=== PATIENT | male | born 1935 | race Caucasian/White ===

== ENCOUNTER → 2016-05-13 | Outpatient (CLI) | payer OTHER ==
[~2016-05-13] MED LIST: ASPI81TA28 PO; DONE10TA12 PO; GLC/500 PO; LISI-789 PO
[2016-05-13 12:58] LABS: BASO % 0.5 %; BASO ABS # 0.04 K/uL (0-0.2); COMPLETE YES; EOS % 2.3 %; HEMATOCRIT 43.6 % (42-52); IG% 0.6 %; LYMPH % 23.3 %; LYMPH ABS # 1.83 K/uL (1.2-3.4); MEAN CELL VOLUME 84.8 fL (80-100); MEAN CORPUSCULAR HEMOGLOBIN 29.4 pg (25-34); MEAN CORPUSCULAR HGB CONC 34.6 g/dl (32-36); MEAN PLATELET VOLUME 11.3 fL (7.4-10.4); MONO % 8.7 %; NEUT % 64.6 %; PLATELET COUNT 192 K/uL (130-400); RED BLOOD COUNT 5.14 M/uL (4.7-6.1); WHITE BLOOD COUNT 7.85 K/uL (4.8-10.8)
[2016-05-13 13:29] LABS: ESTIMATED AVERAGE GLUCOSE 146 mg/dl; HA1C FLAG Normal (Normal)
[2016-05-13 13:32] LABS: ALT/SGPT 28 U/L (12-78); BLOOD UREA NITROGEN 18 mg/dl (7-18); BUN/CREATININE RATIO 12.6 (10-20); CALCIUM 9.4 mg/dl (8.5-10.1); CARBON DIOXIDE 24 mmol/L (21-32); CHLORIDE 103 mmol/L (98-107); GLUCOSE 156 mg/dl (70-99); POTASSIUM 4.3 mmol/L (3.5-5.1); SODIUM 137 mmol/L (136-145)
[2016-05-13 13:35] LABS: ALB/GLOB RATIO 1.4 (0.9-2); ALKALINE PHOSPHATASE 78 U/L (45-117); AST/SGOT 15 U/L (15-37)
== END | disposition home or self-care (01) ==
LOC: C.LABSPEC 12:22
PROVIDERS: ATTEND Internal Medicine
DX: E11.9 Type 2 diabetes mellitus without complications (principal); I10 Essential (primary) hypertension

== ENCOUNTER → 2016-09-14 | Outpatient (CLI) | payer OTHER ==
[2016-09-14 13:18] LABS: ESTIMATED AVERAGE GLUCOSE 148 mg/dl; HA1C FLAG Normal (Normal)
[2016-09-14 13:37] LABS: BLOOD UREA NITROGEN 18 mg/dl (7-18); BUN/CREATININE RATIO 13.8 (10-20); CALCIUM 8.7 mg/dl (8.5-10.1); CARBON DIOXIDE 31 mmol/L (21-32); CHLORIDE 105 mmol/L (98-107); GLUCOSE 205 mg/dl (70-99); POTASSIUM 4.1 mmol/L (3.5-5.1); SODIUM 142 mmol/L (136-145)
== END | disposition home or self-care (01) ==
LOC: C.LABSPEC 12:28
PROVIDERS: ATTEND Internal Medicine
DX: E11.9 Type 2 diabetes mellitus without complications (principal); I10 Essential (primary) hypertension

== ENCOUNTER 2018-08-30 17:36 | Inpatient (IN) ==
[2018-08-30] MEDS ORDERED: SODIUM CHLORIDE 0.9% 1000ML 1,000 ML IV ONE (17:46)
[2018-08-30] MEDS ORDERED: ACETAMINOPHEN 1,000 MG/100 ML VIAL IV STA (17:47)
[2018-08-30 18:00] LABS: Hematocrit (blood only) 40.6 % (42-52); Hemoglobin 14.2 g/dL (14.0-18.0); Mean Corpuscular Volume 82.5 fL (80-100); RDW Coefficient of Variation 13.4 % (11.5-14.5); RDW Standard Deviation 40.7 fL (36.4-46.3); Red Blood Count 4.92 M/uL (4.7-6.1); White Blood Count 4.08 K/uL (4.8-10.8)
[2018-08-30 18:12] LABS: INR 1.1 (0.9-1.1); Partial Thromboplastin Ratio 1.1; Partial Thromboplastin Time 29.1 Seconds (21.0-31.0); Prothrombin Time 11.4 Seconds (9.0-12.0)
--- NOTE | 2018-08-30 18:16 | XRay Report ---
XR chest 1V portable CLINICAL HISTORY: Altered mental status. Fever. COMPARISON STUDY: Chest radiograph August 29, 2018. FINDINGS: Suspected calcified left hilar lymph nodes are noted. There may be a calcified left lower l vincent granuloma. There is no consolidation or evidence for pulmonary edema. Cardiac size is normal. Med iastinal contours are normal. Appearance of the chest is unchanged. IMPRESSION: No acute cardiopulmonary findings. Electronically signed by: Ren Smith M.D. 08/30/2018 6:14 PM
[2018-08-30 18:18] LABS: Alanine Aminotransferase 17 U/L (12-78); Albumin Level 3.6 gm/dl (3.4-5.0); Aspartate Aminotransferase 13 U/L (15-37); BUN Creatinine Ratio 13.7 (10-20); Blood Urea Nitrogen 18 mg/dl (7-18); Calcium 8.6 mg/dl (8.5-10.1); Carbon Dioxide 26 mmol/L (21-32); Chloride 100 mmol/L (98-107); Est GFR (African American) 56.4; Est GFR (Non-African American) 48.6; Glucose 138 mg/dl (70-99); Magnesium 2.1 mg/dl (1.8-2.4); Potassium 4.2 mmol/L (3.5-5.1); Sodium 131 mmol/L (136-145)
[2018-08-30 18:20] LABS: Appearance Urine Clear (Clear); Bacteria Urine Automated Negative (Negative); Bilirubin Urine Negative (Negative); Blood Urine 3+ (Negative); Color Urine Yellow; Epithelial Cell Urine Auto >30 /lpf (0-5); Glucose Urine UA Negative (Negative); Ketones Urine Negative (Negative); Leukocyte Esterase Urine Negative (Negative); Nitrite Urine Negative (Negative); Protein Urine Negative (Negative); RBC Urine Automated >30 /hpf (0-4); Specific Gravity Urine 1.022 (1.000-1.030); Urobilinogen Urine Negative (Negative)
[2018-08-30 18:24] LABS: Alkaline Phosphatase 71 U/L (45-117); Bilirubin Direct 0.2 mg/dl (0-0.2); Bilirubin,Total 0.7 mg/dl (0.2-1); Creatine Kinase 160 U/L (39-308); Total Protein 6.9 gm/dl (6.4-8.2)
[2018-08-30 18:37] LABS: Troponin I < 0.015 ng/ml (0-0.045)
[2018-08-30 18:43] LABS: Mean Platelet Volume 10.1 fL (7.4-10.4); Platelet Count 91 K/uL (130-400)
[2018-08-30 18:44] LABS: Basophils # (auto) 0.01 K/uL (0-0.2); Basophils % (auto) 0.2 %; Immature Granulocytes # (auto) 0.01 K/uL (0.00-0.02); Immature Granulocytes % (auto) 0.2 %; Lymphocytes # (auto) 0.84 K/uL (1.2-3.4); Lymphocytes % (auto) 20.6 %; Monocytes # (auto) 0.52 K/uL (0.11-0.59); Monocytes % (auto) 12.7 %; Neutrophils % (auto) 66.3 %; Platelet Estimate Decreased (Normal)
[2018-08-30 18:51] LABS: Renal Epithelial Cells Urine 0-5 /lpf (0-5)
[2018-08-30] MEDS ORDERED: IOVERSOL 100ml IV PRN (18:52)
--- NOTE | 2018-08-30 19:01 | CT Scan Report ---
CT SCAN OF THE BRAIN WITHOUT IV CONTRAST CLINICAL HISTORY: Change in mental status. Fever. COMPARISON STUDY: CT of the brain dated 08/29/2018. TECHNIQUE: Unenhanced axial CT scan of the brain is performed from the vertex to the skull base. A do se lowering technique was utilized adhering to the principles of ALARA. The Examination is modestly d egraded by motion artifact. FINDINGS: Brain parenchyma: There are age-related involutional changes noting moderate subcortical and periven tricular microangiopathic change. There is no hemorrhage, mass effect, or evidence of acute territori al ischemia by CT criteria. Davis-white matter differentiation is preserved. No extra-axial fluid allen ection is seen. Ventricles, sulci, cisterns: Prominent secondary to involutional change. Intracranial vasculature: There is atherosclerotic calcification of the cavernous carotid arteries. Calvarium: Unremarkable. Sinuses and mastoids: There is subtotal opacification of the right maxillary antrum. The remaining Pa ranasal sinuses are clear. The mastoid air cells are well pneumatized. Orbits: The bony orbits are grossly intact. IMPRESSION: 1. Senescent change as above with no hemorrhage, mass effect, or evidence of acute territorial ischem ia by CT criteria. 2. Right maxillary sinus disease as above. Electronically signed by: Edwin Danielson M.D. 08/30/2018 6:59 PM
[2018-08-30 19:08] LABS: Lyme Ab IgG w/WB Rflx Negative (Negative); Lyme Ab IgM w/WB Rflx Negative (Negative)
--- NOTE | 2018-08-30 19:14 | CT Scan Report ---
CT SCAN OF THE ABDOMEN AND PELVIS WITH IV CONTRAST CLINICAL HISTORY: Fever. Change in mental status. COMPARISON STUDY: No priors. TECHNIQUE: Following the IV administration of 95 cc of Optiray 320, CT scan of the abdomen and pelvi s is performed from the lung bases to the proximal femora. Images are reviewed in the axial, sagittal , and coronal planes. IV contrast was administered without complication. A dose lowering technique wa s utilized adhering to the principles of ALARA. The examination is degraded by streak artifact from t he left arm which could not be elevated above the abdomen, as well as by mild motion artifact. CT DOSE: 2278.98 mGy.cm FINDINGS: Lung bases: The heart is normal in size and without pericardial effusion. There are coronary artery c alcifications. The lung bases are clear. Liver: The contrast-enhanced liver is normal in size, contour, and attenuation. There is no intrahepa tic biliary ductal dilatation. The hepatic veins and portal veins are patent. Gallbladder: Unremarkable. Spleen: The spleen is enlarged, measuring 15.7 cm in length. There are numerous calcified splenic gra nulomas. Pancreas: Moderately atrophic and grossly unremarkable. Adrenal glands: Unremarkable. Kidneys: The contrast enhanced kidneys are normal in size and without hydronephrosis. The kidneys enh ance adnexa symmetrically. Excreted IV contrast is present within the renal collecting system and ure ters. Scattered subcentimeter cortical hypodensities likely represent cysts but are too small for def initive characterization. Abdominal vasculature: There is moderate to advanced atherosclerotic calcification and mild ectasia o f the abdominal aorta. Bowel: There is moderate diverticulosis of the left colon without CT evidence of acute diverticulitis . No bowel obstruction is seen. The appendix is well-visualized and normal. Peritoneum: There is no intraperitoneal free air or abdominal ascites. Lymphadenopathy: None. Pelvic viscera: The prostate gland is enlarged and heterogeneous, measuring 5.2 cm in transverse diam eter. The bladder is decompressed around a Dougherty catheter. Mild pericystic inflammation is identified . There is a small fat-containing right inguinal hernia. Skeletal structures: The skeletal structures are osteopenic. Mild lumbosacral spondylosis is observed . No lytic or blastic lesions are seen. IMPRESSION: 1. The bladder is decompressed around a Dougherty catheter and there is mild pericystic stranding. Correl ate clinically and with urinalysis for evidence of cystitis. 2. There is moderate diverticulosis of the left colon without CT evidence of acute diverticulitis. 3. Splenomegaly. 4. Additional findings as above. Electronically signed by: Edwin Danielson M.D. 08/30/2018 7:13 PM
[2018-08-30 19:20] LABS: Base Excess VBG -2.3 mEq/L; Oxygen Saturation VBG 90.5 %; pH VBG 7.39 (7.36-7.41)
[2018-08-30] MEDS ORDERED: DOXYCYCLINE HYCLATE 100 MG in DEXTROSE 5% 100 ML IV STA (19:58)
[2018-08-30] MEDS ORDERED: DOCUSATE SODIUM 100 MG CAP PO PRN (23:04)
[2018-08-30] MEDS ORDERED: GLUCOSE 10 TABS/TUBE PO PRN (23:04)
[2018-08-30] MEDS ORDERED: DEXTROSE 50% 50 ML SYRINGE IV PRN (23:04)
[2018-08-30] MEDS ORDERED: GLUCAGON FOR INJ 1 MG VIAL SQ PRN (23:04)
[2018-08-30] MEDS ORDERED: SODIUM CHLORIDE 0.9% 1000ML 1,000 ML IV SCH (23:04)
[2018-08-30] MEDS ORDERED: GLUCOSE 40% GEL 15 GM TUBE PO PRN (23:04)
[2018-08-30] MEDS ORDERED: CARBOHYDRATES FOR HYPOGLYCEMIA PO PRN (23:04)
[2018-08-30] MEDS ORDERED: ACETAMINOPHEN 325 MG TAB PO PRN (23:04)
--- NOTE | 2018-08-30 23:12 | Emergency Department Note ---
Entered by Kelly Carrera acting as a scribe for Steve Avery History of Present Illness General Chief complaint: Fever Stated complaint: poss. sepsis Time Seen by Provider: 08/30/18 17:43 Source: other (Nurse) Limitations: altered mental status History of Present Illness Onset (ago): day(s) 1 Location: head (Fever) Severity: similar to prior episodes Pain Consistency: + other (Persistent) Quality: + other (Fever) Associated symptoms: + fever/chills The patient is an 83 year old male presenting to the Emergency Department with an persistent fever starting 1 day ago. The nurse reports that the patient�s temperature is 40.1C. She states that the patient is weak, reporting chills, and has increased confusion since being discharged from the hospital yesterday. The HPI and ROS are limited due to AMS. Home Medications Home Medications Medication Instructions Recorded Confirmed Type aspirin [Aspir-81] 81 mg PO DAILY 08/29/18 08/30/18 History donepezil 10 mg PO DAILY 08/29/18 08/30/18 History escitalopram oxalate 10 mg PO DAILY 08/29/18 08/30/18 History lisinopril 2.5 mg PO DAILY 08/29/18 08/30/18 History memantine 5 mg PO BID 08/29/18 08/30/18 History metformin 500 mg PO QAM 08/29/18 08/30/18 History tamsulosin 0.4 mg PO DAILY 08/29/18 08/30/18 History Allergies Allergy/AdvReac Type Severity Reaction Status Date / Time No Known Allergies Allergy Verified 08/30/18 22:11 Past Med/Surg History Medical History HTN (hypertension) (Chronic) Diabetes (Chronic) Hyperlipidemia (Chronic) UTI (urinary tract infection) (Acute) Family History Other Family history non-contributory Social History Feels Safe at Home: Yes Smoking Status: Former smoker Review of Systems The HPI and ROS are limited due to AMS. Physical Exam Vital Signs Vital Signs - 24 hr 08/30/18 17:40 08/30/18 18:00 08/30/18 18:20 Temperature 40.1 C H Temperature Source Rectal Sepsis Recent Fever Within 48 Hours Yes Sepsis New/Unexplained Change in Mental Status Yes Sepsis Action Taken by Nursing Physician Notified Pulse Rate 84 77 74 Pulse Rate [Finger] Pulse Rate from SpO2 Sensor 76 Respiratory Rate 24 24 19 Respiratory Effort / Characteristics Respiratory Depth Blood Pressure 135/95 145/84 H Blood Pressure [Right Arm] Blood Pressure Mean 108 104 Blood Pressure Mean [Right Arm] Pulse Oximetry 94 93 Oxygen Delivery Method Room Air 08/30/18 19:26 08/30/18 19:27 08/30/18 20:23 Temperature 37.7 C H Temperature Source Rectal Sepsis Recent Fever Within 48 Hours Sepsis New/Unexplained Change in Mental Status Sepsis Action Taken by Nursing Pulse Rate Pulse Rate [Finger] 65 62 Pulse Rate from SpO2 Sensor Respiratory Rate 20 20 Respiratory Effort / Characteristics Non-Labored Spontaneous Non-Labored Spontaneous Respiratory Depth Normal Normal Blood Pressure Blood Pressure [Right Arm] 139/72 130/67 Blood Pressure Mean Blood Pressure Mean [Right Arm] 94 88 Pulse Oximetry 94 94 94 Oxygen Delivery Method Room Air Room Air Room Air 08/30/18 21:42 Temperature Temperature Source Sepsis Recent Fever Within 48 Hours Sepsis New/Unexplained Change in Mental Status Sepsis Action Taken by Nursing Pulse Rate Pulse Rate [Finger] 60 Pulse Rate from SpO2 Sensor Respiratory Rate 20 Respiratory Effort / Characteristics Respiratory Depth Blood Pressure Blood Pressure [Right Arm] 130/71 Blood Pressure Mean Blood Pressure Mean [Right Arm] 90 Pulse Oximetry 95 Oxygen Delivery Method Room Air HENT: Exam performed. - Head: Normocephalic and atraumatic. - Right Ear: External ear normal. No mastoid tenderness. - Left Ear: External ear normal. No mastoid tenderness. - Mouth/Throat: The oropharynx is clear and moist. No trismus in the jaw. No dental abscesses or uvula swelling. No oropharyngeal exudate or tonsillar abscesses. EYES: Conjunctivae and EOM are normal. Pupils are equal, round, and reactive to light. Right eye exhibits no discharge. Left eye exhibits no discharge. No scleral icterus. NECK: Normal range of motion. Neck supple. No JVD present. No spinous process tenderness present. CV: Normal rate, regular rhythm, normal heart sounds and intact distal pulses. There is no peripheral edema. Palpable radial pulses bue. PULM/CHEST: Effort normal and breath sounds normal. No respiratory distress. No stridor. He has no wheezes. He has no rales. - Chest Wall: He exhibits no tenderness. ABD: The abdomen is distended. : Uncircumcised. MUSC/SKEL: Normal range of motion. There is no peripheral edema, tenderness or deformity. NEURO: Motor and sensation grossly intact. SKIN: Skin is warm and dry. He is not diaphoretic. Course 1741: The patient was evaluated in room B1, and a complete history and physical examination were performed. The patient was seen by me yesterday for increased confusion and weakness. At that time the patient�s workup was negative, negative lactic acid, no leukocytosis, negative urine analysis, negative influenza. 2000: Vital signs stable. Labs and imaging within normal limits. Family reports that they found multiple ticks on their dog within the last few days. Patient�s Lyme screen was negative. It is noted that the patient�s platelet count has dropped from 116 to 91 in 24 hours. There is possibility that the patient could be suffering from anaplasmosis. No ticks were found on the patient�s body. Testing for anaplasmosis will be sent off. Patient will be treated with Doxycycline. Dr. Baez � [facility] [place] and is accepting the patient for anaplasmosis treatment and observation. Administered Medications Discontinued Medications Sodium Chloride (Nss 1000ml) 1,000 mls @ 999 mls/hr IV .Q1H1M ONE Stop: 08/30/18 18:46 Last Infusion: 08/30/18 18:33 Dose: 0 mls/hr Documented by: [id number] Admin: 08/30/18 17:46 Dose: 999 mls/hr Documented by: [id number] Acetaminophen (Ofirmev) 1,000 mg in 100 mls @ 400 mls/hr IV NOW STA Stop: 08/30/18 18:01 Last Infusion: 08/30/18 18:09 Dose: 0 mls/hr Documented by: [id number] Admin: 08/30/18 17:55 Dose: 400 mls/hr Documented by: [id number] Doxycycline Hyclate 100 mg/ (Dextrose) 110 mls @ 50 mls/hr IV NOW STA Stop: 08/30/18 22:09 Last Infusion: 08/30/18 22:55 Dose: 0 mls/hr Documented by: [id number] Admin: 08/30/18 20:22 Dose: 50 mls/hr Documented by: [id number] Ioversol (Optiray 320 100ml) 95 ml IV ONCE PRN PRN Reason: Interaction Checking Stop: 09/03/18 18:51 Last Admin: 08/30/18 18:53 Dose: 95 ml Documented by: [id number] Medical Decision Making Medical Records Attestation: I reviewed the patient's medical records. Home Medications Current Medication List: was personally reviewed by me Laboratory Data Attestation: I reviewed the patient's lab results. Result diagrams: 08/30/18 17:30 08/30/18 17:30 Lab Results 08/30/18 08/30/18 08/30/18 Range/Units 17:30 17:30 17:30 WBC 4.08 L (4.8-10.8) K/uL RBC 4.92 (4.7-6.1) M/uL Hgb 14.2 (14.0-18.0) g/dL Hct 40.6 L (42-52) % MCV 82.5 (80-100) fL MCH 28.9 (25-34) pg MCHC 35.0 (32-36) g/dL RDW Std Deviation 40.7 (36.4-46.3) fL RDW Coeff of Daniella 13.4 (11.5-14.5) % Plt Count 91 L (130-400) K/uL MPV 10.1 (7.4-10.4) fL Immature Gran % (Auto) 0.2 % Neut % (Auto) 66.3 % Lymph % (Auto) 20.6 % Long % (Auto) 12.7 % Eos % (Auto) 0.0 % Baso % (Auto) 0.2 % Immature Gran # (Auto) 0.01 (0.00-0.02) K/uL Neut # (Auto) 2.70 (1.4-6.5) K/uL Lymph # (Auto) 0.84 L (1.2-3.4) K/uL Long # (Auto) 0.52 (0.11-0.59) K/uL Eos # (Auto) 0.00 (0-0.5) K/uL Baso # (Auto) 0.01 (0-0.2) K/uL Platelet Estimate Decreased L (Normal) PT 11.4 (9.0-12.0) Seconds INR 1.1 (0.9-1.1) APTT 29.1 (21.0-31.0) Seconds PTT Ratio 1.1 VBG pH (7.36-7.41) VBG pCO2 (38-50) mmHg VBG pO2 mmHg VBG HCO3 mmol/L VBG O2 Saturation % VBG Base Excess mEq/L Barometric Pressure mm/Hg Sodium 131 L (136-145) mmol/L Potassium 4.2 (3.5-5.1) mmol/L Chloride 100 (98-107) mmol/L Carbon Dioxide 26 (21-32) mmol/L Anion Gap 5.0 (3-11) BUN 18 (7-18) mg/dl Creatinine 1.34 (0.6-1.4) mg/dl Est Cr Clr Drug Dosing Not Reportable Est GFR ( Amer) 56.4 Est GFR (Non-Af Amer) 48.6 BUN/Creatinine Ratio 13.7 (10-20) Glucose 138 H (70-99) mg/dl Lactate (0.4-2.0) mmol/L Calcium 8.6 (8.5-10.1) mg/dl Magnesium 2.1 (1.8-2.4) mg/dl Total Bilirubin 0.7 (0.2-1) mg/dl Direct Bilirubin 0.2 D (0-0.2) mg/dl AST 13 L (15-37) U/L ALT 17 (12-78) U/L Alkaline Phosphatase 71 (45-117) U/L Total Creatine Kinase 160 (39-308) U/L Troponin I < 0.015 (0-0.045) ng/ml Total Protein 6.9 (6.4-8.2) gm/dl Albumin 3.6 (3.4-5.0) gm/dl Lipase 141 (73-393) U/L Urine Color Urine Appearance (Clear) Urine pH (4.5-7.5) Ur Specific [place] (1.000-1.030) Urine Protein (Negative) Urine Glucose (UA) (Negative) Urine Ketones (Negative) Urine Blood (Negative) Urine Nitrite (Negative) Urine Bilirubin (Negative) Urine Urobilinogen (Negative) Ur Leukocyte Esterase (Negative) Urine WBC (Auto) (0-5) /hpf Urine RBC (Auto) (0-4) /hpf U Hyaline Cast (Auto) (0-5) /lpf U Epithel Cells (Auto) (0-5) /lpf Urine Bacteria (Auto) (Negative) Ur Renal Epithelial Cell (0-5) /lpf Lyme Disease IgG Ab (Negative) Lyme Disease IgM Ab (Negative) 08/30/18 08/30/18 08/30/18 Range/Units 17:30 17:30 18:00 WBC (4.8-10.8) K/uL RBC (4.7-6.1) M/uL Hgb (14.0-18.0) g/dL Hct (42-52) % MCV (80-100) fL MCH (25-34) pg MCHC (32-36) g/dL RDW Std Deviation (36.4-46.3) fL RDW Coeff of Daniella (11.5-14.5) % Plt Count (130-400) K/uL MPV (7.4-10.4) fL Immature Gran % (Auto) % Neut % (Auto) % Lymph % (Auto) % Long % (Auto) % Eos % (Auto) % Baso % (Auto) % Immature Gran # (Auto) (0.00-0.02) K/uL Neut # (Auto) (1.4-6.5) K/uL Lymph # (Auto) (1.2-3.4) K/uL Long # (Auto) (0.11-0.59) K/uL Eos # (Auto) (0-0.5) K/uL Baso # (Auto) (0-0.2) K/uL Platelet Estimate (Normal) PT (9.0-12.0) Seconds INR (0.9-1.1) APTT (21.0-31.0) Seconds PTT Ratio VBG pH (7.36-7.41) VBG pCO2 (38-50) mmHg VBG pO2 mmHg VBG HCO3 mmol/L VBG O2 Saturation % VBG Base Excess mEq/L Barometric Pressure mm/Hg Sodium (136-145) mmol/L Potassium (3.5-5.1) mmol/L Chloride (98-107) mmol/L Carbon Dioxide (21-32) mmol/L Anion Gap (3-11) BUN (7-18) mg/dl Creatinine (0.6-1.4) mg/dl Est Cr Clr Drug Dosing Est GFR ( Amer) Est GFR (Non-Af Amer) BUN/Creatinine Ratio (10-20) Glucose (70-99) mg/dl Lactate (0.4-2.0) mmol/L Calcium (8.5-10.1) mg/dl Magnesium (1.8-2.4) mg/dl Total Bilirubin (0.2-1) mg/dl Direct Bilirubin (0-0.2) mg/dl AST (15-37) U/L ALT (12-78) U/L Alkaline Phosphatase (45-117) U/L Total Creatine Kinase (39-308) U/L Troponin I Cancelled (0-0.045) ng/ml Total Protein (6.4-8.2) gm/dl Albumin (3.4-5.0) gm/dl Lipase (73-393) U/L Urine Color Yellow Urine Appearance Clear (Clear) Urine pH 6.0 (4.5-7.5) Ur Specific [place] 1.022 (1.000-1.030) Urine Protein Negative (Negative) Urine Glucose (UA) Negative (Negative) Urine Ketones Negative (Negative) Urine Blood 3+ H (Negative) Urine Nitrite Negative (Negative) Urine Bilirubin Negative (Negative) Urine Urobilinogen Negative (Negative) Ur Leukocyte Esterase Negative (Negative) Urine WBC (Auto) 1-5 (0-5) /hpf Urine RBC (Auto) >30 H (0-4) /hpf U Hyaline Cast (Auto) 1-5 (0-5) /lpf U Epithel Cells (Auto) >30 H (0-5) /lpf Urine Bacteria (Auto) Negative (Negative) Ur Renal Epithelial Cell 0-5 (0-5) /lpf Lyme Disease IgG Ab Negative (Negative) Lyme Disease IgM Ab Negative (Negative) 08/30/18 08/30/18 Range/Units 18:19 19:06 WBC (4.8-10.8) K/uL RBC (4.7-6.1) M/uL Hgb (14.0-18.0) g/dL Hct (42-52) % MCV (80-100) fL MCH (25-34) pg MCHC (32-36) g/dL RDW Std Deviation (36.4-46.3) fL RDW Coeff of Daniella (11.5-14.5) % Plt Count (130-400) K/uL MPV (7.4-10.4) fL Immature Gran % (Auto) % Neut % (Auto) % Lymph % (Auto) % Long % (Auto) % Eos % (Auto) % Baso % (Auto) % Immature Gran # (Auto) (0.00-0.02) K/uL Neut # (Auto) (1.4-6.5) K/uL Lymph # (Auto) (1.2-3.4) K/uL Long # (Auto) (0.11-0.59) K/uL Eos # (Auto) (0-0.5) K/uL Baso # (Auto) (0-0.2) K/uL Platelet Estimate (Normal) PT (9.0-12.0) Seconds INR (0.9-1.1) APTT (21.0-31.0) Seconds PTT Ratio VBG pH 7.39 (7.36-7.41) VBG pCO2 37 L (38-50) mmHg VBG pO2 60 mmHg VBG HCO3 22 mmol/L VBG O2 Saturation 90.5 % VBG Base Excess -2.3 mEq/L Barometric Pressure 735.6 mm/Hg Sodium (136-145) mmol/L Potassium (3.5-5.1) mmol/L Chloride (98-107) mmol/L Carbon Dioxide (21-32) mmol/L Anion Gap (3-11) BUN (7-18) mg/dl Creatinine (0.6-1.4) mg/dl Est Cr Clr Drug Dosing Est GFR ( Amer) Est GFR (Non-Af Amer) BUN/Creatinine Ratio (10-20) Glucose (70-99) mg/dl Lactate 0.7 (0.4-2.0) mmol/L Calcium (8.5-10.1) mg/dl Magnesium (1.8-2.4) mg/dl Total Bilirubin (0.2-1) mg/dl Direct Bilirubin (0-0.2) mg/dl AST (15-37) U/L ALT (12-78) U/L Alkaline Phosphatase (45-117) U/L Total Creatine Kinase (39-308) U/L Troponin I (0-0.045) ng/ml Total Protein (6.4-8.2) gm/dl Albumin (3.4-5.0) gm/dl Lipase (73-393) U/L Urine Color Urine Appearance (Clear) Urine pH (4.5-7.5) Ur Specific [place] (1.000-1.030) Urine Protein (Negative) Urine Glucose (UA) (Negative) Urine Ketones (Negative) Urine Blood (Negative) Urine Nitrite (Negative) Urine Bilirubin (Negative) Urine Urobilinogen (Negative) Ur Leukocyte Esterase (Negative) Urine WBC (Auto) (0-5) /hpf Urine RBC (Auto) (0-4) /hpf U Hyaline Cast (Auto) (0-5) /lpf U Epithel Cells (Auto) (0-5) /lpf Urine Bacteria (Auto) (Negative) Ur Renal Epithelial Cell (0-5) /lpf Lyme Disease IgG Ab (Negative) Lyme Disease IgM Ab (Negative) Imaging Data Radiologist's Impression: Radiology results as stated below per my review and the radiologist's interpretation: CT SCAN OF THE BRAIN WITHOUT IV CONTRAST CLINICAL HISTORY: Change in mental status. Fever. COMPARISON STUDY: CT of the brain dated 08/29/2018. TECHNIQUE: Unenhanced axial CT scan of the brain is performed from the vertex to the skull base. A dose lowering technique was utilized adhering to the principles of ALARA. The Examination is modestly degraded by motion artifact. FINDINGS: Brain parenchyma: There are age-related involutional changes noting moderate subcortical and periventricular microangiopathic change. There is no hemorrhage, mass effect, or evidence of acute territorial ischemia by CT criteria. Davis- white matter differentiation is preserved. No extra-axial fluid collection is seen. Ventricles, sulci, cisterns: Prominent secondary to involutional change. Intracranial vasculature: There is atherosclerotic calcification of the cavernous carotid arteries. Calvarium: Unremarkable. Sinuses and mastoids: There is subtotal opacification of the right maxillary antrum. The remaining Paranasal sinuses are clear. The mastoid air cells are well pneumatized. Orbits: The bony orbits are grossly intact. IMPRESSION: 1. Senescent change as above with no hemorrhage, mass effect, or evidence of acute territorial ischemia by CT criteria. 2. Right maxillary sinus disease as above. Electronically signed by: Edwin Danielson M.D. 08/30/2018 6:[address] SCAN OF THE ABDOMEN AND PELVIS WITH IV CONTRAST CLINICAL HISTORY: Fever. Change in mental status. COMPARISON STUDY: No priors. TECHNIQUE: Following the IV administration of 95 cc of Optiray 320, CT scan of the abdomen and pelvis is performed from the lung bases to the proximal femora. Images are reviewed in the axial, sagittal, and coronal planes. IV contrast was administered without complication. A dose lowering technique was utilized adhering to the principles of ALARA. The examination is degraded by streak artifact from the left arm which could not be elevated above the abdomen, as well as by mild motion artifact. CT DOSE: 2278.98 mGy.cm FINDINGS: Lung bases: The heart is normal in size and without pericardial effusion. There are coronary artery calcifications. The lung bases are clear. Liver: The contrast-enhanced liver is normal in size, contour, and attenuation. There is no intrahepatic biliary ductal dilatation. The hepatic veins and portal veins are patent. Gallbladder: Unremarkable. Spleen: The spleen is enlarged, measuring 15.7 cm in length. There are numerous calcified splenic granulomas. Pancreas: Moderately atrophic and grossly unremarkable. Adrenal glands: Unremarkable. Kidneys: The contrast enhanced kidneys are normal in size and without hydronephrosis. The kidneys enhance adnexa symmetrically. Excreted IV contrast is present within the renal collecting system and ureters. Scattered subcentimeter cortical hypodensities likely represent cysts but are too small for definitive characterization. Abdominal vasculature: There is moderate to advanced atherosclerotic calcification and mild ectasia of the abdominal aorta. Bowel: There is moderate diverticulosis of the left colon without CT evidence of acute diverticulitis. No bowel obstruction is seen. The appendix is well- visualized and normal. Peritoneum: There is no intraperitoneal free air or abdominal ascites. Lymphadenopathy: None. Pelvic viscera: The prostate gland is enlarged and heterogeneous, measuring 5.2 cm in transverse diameter. The bladder is decompressed around a Dougherty catheter. Mild pericystic inflammation is identified. There is a small fat-containing righ t inguinal hernia. Skeletal structures: The skeletal structures are osteopenic. Mild lumbosacral sp ondylosis is observed. No lytic or blastic lesions are seen. IMPRESSION: 1. The bladder is decompressed around a Dougherty catheter and there is mild pericystic stranding. Correlate clinically and with urinalysis for evidence of cystitis. 2. There is moderate diverticulosis of the left colon without CT evidence of acute diverticulitis. 3. Splenomegaly. 4. Additional findings as above. Electronically signed by: Edwin Danielson M.D. 08/30/2018 7:13 PM XR chest 1V portable CLINICAL HISTORY: Altered mental status. Fever. COMPARISON STUDY: Chest radiograph August 29, 2018. FINDINGS: Suspected calcified left hilar lymph nodes are noted. There may be a calcified left lower lung granuloma. There is no consolidation or evidence for pulmonary edema. Cardiac size is normal. Mediastinal contours are normal. Appearance of the chest is unchanged. IMPRESSION: No acute cardiopulmonary findings. Electronically signed by: Ren Smith M.D. 08/30/2018 6:14 PM ECG Data Attestation: I personally reviewed and interpreted this ECG as follows: Indication: syncope Rate (beats per minute): 77 Rhythm: sinus rhythm Findings: + other (MT 146. QRS 126. QTC 407. ) and + RBBB Comparison ECG Date: from (08/29/18) Change: no significant change Blood Pressure Blood Pressure Findings: Normal blood pressure Blood Pressure Disposition: further management by hospitalist [facility] Narrative 1742: The patient was evaluated in room B1, and a complete history and physical examination were performed. The patient was seen by me yesterday for increased confusion and weakness. At that time the patient�s workup was negative, negative lactic acid, no leukocytosis, negative urine analysis, negative influenza. 2000: Vital signs stable. Labs and imaging within normal limits. Family reports that they found multiple ticks on their dog within the last few days. Patient�s Lyme screen was negative. It is noted that the patient�s platelet count has dropped from 116 to 91 in 24 hours. There is possibility that the patient could be suffering from anaplasmosis. No ticks were found on the patient�s body. Alla ting for anaplasmosis will be sent off. Patient will be treated with Doxycycline. Dr. Nestor GODOY hospitalist was consulted and is accepting the patient for anaplasmosis treatment and observation. Impression & Plan Fever Discharge Plan Visit Data *Final* Discharge Date/Time: 08/30/18 22:16 Chief Complaint: Fever Stated Complaint: poss. sepsis ED Provider: Steve Avery Discharge Problem: Fever Patient Disposition: Admitted As Inpatient Discharge Instructions Interventions: ED Discharge Assessment Last Done: 08/30/18 22:16 Discharge Problem: Fever Qualifiers: Fever type: unspecified Qualified Code(s): R50.9 - Fever, unspecified The scribe's documentation has been prepared under my direction and personally reviewed by me in its entirety. I confirm that the note above accurately reflects all work, treatment, procedures, and medical decision making performed by me.
[2018-08-30] MEDS: ENOXAPARIN INJ 30 MG/0.3 ML SYR SQ SCH (23:50)
[2018-08-30 23:57] LABS: Phosphorus 2.9 mg/dl (2.5-4.9)
--- NOTE | 2018-08-31 06:23 | History & Physical Report ---
Date of Service August 30, 2018 Assessment & Plan (1) Confusion: Suspect acute delirium, etiology uncertain. Concern for infectious source given high fever tonight. ?tick borne illness - patient with dog that has had ticks on him of late. Patient denies recent tick bites. ?encephalitis? neck supple, no meningismus -Admit to medical floor -Await results of tick borne illness, Lyme negative, Anaplasmosis/Erlichiosis pending = patient with fever, fatigue/weakness as well as leukopenia and t hrombocytopenia -Frequent orientation and delirium prevention strategies -Consider LP and MRI -Empiric Doxy 100mg IV BID -Follow culture results Present on Admission?: Yes (2) Alzheimer's dementia: At higher risk for delirium. reports patient is fairly independent at baseline -Continue Aircept and Namenda -Delirium prevention strategies as above Present on Admission?: Yes (3) Diabetes: ISS. CC diet Continue to monitor (4) HTN (hypertension): Blood pressure stable -Continue Lisinopril -Continue to monitor History of Present Illness Chief Complaint: confusion Primary Care Provider: Zander Dougherty MD 83yo male with history of HTN, HLP, DM and Alzheimers dementia presenting with worsening mental status. History obtained from and children at bedside. Report that patient was out shopping in [facility] yesteray. Patient became uncooperative, didn't want to get out of the car, was picking at the car and opening the door while driving, then got out of the car and was walking around in his stocking feet. Allergies Allergy/AdvReac Type Severity Reaction Status Date / Time No Known Allergies Allergy Verified 08/30/18 22:11 Home Medications Home Medications Medication Instructions Recorded Confirmed Type aspirin [Aspir-81] 81 mg PO DAILY 08/29/18 08/30/18 History donepezil 10 mg PO DAILY 08/29/18 08/30/18 History escitalopram oxalate 10 mg PO DAILY 08/29/18 08/30/18 History lisinopril 2.5 mg PO DAILY 08/29/18 08/30/18 History memantine 5 mg PO BID 08/29/18 08/30/18 History metformin 500 mg PO QAM 08/29/18 08/30/18 History tamsulosin 0.4 mg PO DAILY 08/29/18 08/30/18 History Past Med/Surg History Medical History HTN (hypertension) (Chronic) Diabetes (Chronic) Hyperlipidemia (Chronic) UTI (urinary tract infection) (Acute) Family History Other Family history non-contributory Social History Preferred Language: Wallisian Communication Ability: Effective Cheese Weigher Required: No Beliefs That Will Affect Care: None Current Living Situation: Significant Other Feels Safe at Home: Yes Smoking Status: Former smoker Hx Alcohol Use: No Hx Substance Use: No Results & Data Vital Signs (Past 12 Hours) Vital Signs Temp Pulse Pulse Resp BP BP Pulse Ox 08/31/18 04:42 75 154/73 H 08/31/18 03:51 36.6 C 99 H 18 160/69 H 94 08/30/18 23:04 36.6 C 58 L 20 156/72 H 98 08/30/18 22:20 36.8 C 97 H 18 119/63 94 08/30/18 21:42 60 20 130/71 95 08/30/18 20:23 62 20 130/67 94 08/30/18 19:27 37.7 C H 65 20 139/72 94 08/30/18 19:26 94 (1) Alzheimer's dementia Alzheimer's disease onset: unspecified onset Dementia behavioral disturbance: without behavioral disturbance Qualified Code(s): G30.9 - Alzheimer's disease, unspecified; F02.80 - Dementia in other diseases classified elsewhere without behavioral disturbance
[2018-08-31 07:56] LABS: Hematocrit (blood only) 38.6 % (42-52); Hemoglobin 13.4 g/dL (14.0-18.0); Mean Corpuscular Hgb Conc 34.7 g/dL (32-36); Mean Corpuscular Volume 82.1 fL (80-100); RDW Coefficient of Variation 13.4 % (11.5-14.5); RDW Standard Deviation 40.5 fL (36.4-46.3); White Blood Count 3.15 K/uL (4.8-10.8)
[2018-08-31 08:02] LABS: BUN Creatinine Ratio 12.3 (10-20); Creatinine Clr Calc Pharmacy 45.5 ml/min; Est GFR (African American) 62.5; Potassium 3.8 mmol/L (3.5-5.1)
[2018-08-31 08:04] LABS: Mean Platelet Volume 10.7 fL (7.4-10.4); Platelet Count 81 K/uL (130-400)
[2018-08-31 08:30] LABS: Basophils # (auto) 0.01 K/uL (0-0.2); Basophils % (auto) 0.3 %; Immature Granulocytes # (auto) 0.01 K/uL (0.00-0.02); Immature Granulocytes % (auto) 0.3 %; Lymphocytes # (auto) 0.75 K/uL (1.2-3.4); Lymphocytes % (auto) 23.8 %; Monocytes # (auto) 0.36 K/uL (0.11-0.59); Monocytes % (auto) 11.4 %; Neutrophils # (auto) 2.02 K/uL (1.4-6.5); Neutrophils % (auto) 64.2 %
[2018-08-31] MEDS: INSULIN ASPART 100 UNITS/ML 3 ML PEN SC SCH ×4 (08:41→20:23)
[2018-08-31] MEDS: DOXYCYCLINE HYCLATE 100 MG in DEXTROSE 5% 100 ML IV SCH ×2 (08:43→20:23)
[2018-08-31] MEDS: TAMSULOSIN HCL 0.4 MG CAP PO SCH (08:43)
[2018-08-31] MEDS: ASPIRIN 81 MG ECTAB PO SCH (08:43)
[2018-08-31] MEDS: ESCITALOPRAM OXALATE 10 MG TAB PO SCH (08:43)
[2018-08-31] MEDS: LISINOPRIL 2.5 MG TAB PO SCH (08:43)
[2018-08-31] MEDS: MEMANTINE HCL 5 MG TAB PO SCH ×2 (08:43→20:25)
[2018-08-31] MEDS: DONEPEZIL HCL 10 MG TAB PO SCH (08:43)
[2018-08-31] MEDS: ENOXAPARIN INJ 30 MG/0.3 ML SYR SQ SCH (20:24)
--- NOTE | 2018-08-31 22:06 | Hospitalist Progress Note ---
Date of Service August 31, 2018 Assessment & Plan (1) Confusion: Suspect acute delirium, etiology uncertain. Concern for infectious source given high fever tonight. ?tick borne illness - patient with dog that has had ticks on him of late. Patient denies recent tick bites. ?encephalitis? neck supple, no meningismus -Admit to medical floor -Patient is admitted with acute encephalopathy in the setting of advanced alzheimer's dementia. -He appears to be somewhat improved as per family -Following lab work: does not appear to be lymes. -Perhaps viral illness -Will consult Neurology as well. -Await results of tick borne illness, Lyme negative, Anaplasmosis/Erlichiosis pending = patient with fever, fatigue/weakness as well as leukopenia and thrombocytopenia -Frequent orientation and delirium prevention strategies -Empiric Doxy 100mg IV BID -Follow culture results (2) Alzheimer's dementia: At higher risk for delirium. reports patient is fairly independent at baseline -Continue Aircept and Namenda -Delirium prevention strategies as above (3) Diabetes: ISS. CC diet Continue to monitor (4) HTN (hypertension): Blood pressure stable -Continue Lisinopril -Continue to monitor Spent 35 minutes in managemnet of patient. Subjective 83 yo male continues to be confused, but follows commands. He is a poor historian however. Family is at bedside and it appears he is improving. Review of Systems Review of Systems: Unobtainable due to mental health condition Physical Exam Physical Exam: Gen: Patient does not appear to be ill. Patient is oriented to person, stutters, no facial droop Skin: intact, no rash HEENT: NC/AT, PERRL, neck supple, no JVD Heart: +S1/S2, regular, no m/r/g Lungs; CTA anteriorly, no rales/rhonchi/wheezes Abd: +BS, soft, NT/ND Ext: no edema Neuro: nonfocal, moves all 4 extremities. 4+/5 MUSCLE strength in lower extremity (likely normal but patient does not fully follow commands. Results & Data Vital Signs (Past 12 Hours) Vital Signs Temp Pulse Pulse Resp BP Pulse Ox 08/31/18 19:14 36.7 C 73 20 155/66 H 91 08/31/18 15:41 36.8 C 60 20 139/103 H 99 08/31/18 15:00 59 L 08/31/18 11:37 37.4 C 75 18 137/76 91 (1) Alzheimer's dementia Alzheimer's disease onset: unspecified onset Dementia behavioral disturbance: without behavioral disturbance Qualified Code(s): G30.9 - Alzheimer's disease, unspecified; F02.80 - Dementia in other diseases classified elsewhere without behavioral disturbance
[2018-09-01] MEDS: DONEPEZIL HCL 10 MG TAB PO SCH (07:53)
[2018-09-01] MEDS: ASPIRIN 81 MG ECTAB PO SCH (07:53)
[2018-09-01] MEDS: MEMANTINE HCL 5 MG TAB PO SCH ×2 (07:53→20:31)
[2018-09-01] MEDS: LISINOPRIL 2.5 MG TAB PO SCH (07:53)
[2018-09-01] MEDS: DOXYCYCLINE HYCLATE 100 MG in DEXTROSE 5% 100 ML IV SCH (07:53)
[2018-09-01] MEDS: TAMSULOSIN HCL 0.4 MG CAP PO SCH (07:53)
[2018-09-01] MEDS: ESCITALOPRAM OXALATE 10 MG TAB PO SCH (07:53)
[2018-09-01] MEDS: INSULIN ASPART 100 UNITS/ML 3 ML PEN SC SCH ×4 (07:54→20:34)
--- NOTE | 2018-09-01 09:15 | Neurology Consultation ---
Date of Consultation September 01, 2018 Assessment & Plan (1) Encephalopathy: Acute encephalopathy occurring in the context of advanced Alzheimer's dementia. This patient's encephalopathy appears to be significantly improved this morning. He probably does not have meningitis or encephalitis. He does not have any obvious signs of stroke. His clinical presentation is not suggestive of seizures. I would hold off on obtaining a brain MRI at this time as he will not likely tolerate this test very well. His family indicates that he did not tolerate brain MRI in the past as part of his dementia evaluation. I do not think obtaining a lumbar puncture is necessary at this time. Continue donepezil and Namenda for patient's Alzheimer's dementia which appears to be advanced. History of Present Illness Reason for Consultation: Altered mental status Requesting Physician: Armen Blake Attending Physician: Armen Blake History of Present Illness The patient is an 83-year-old male with a history of advanced Alzheimer's dementia who presents with altered mental status and fever beginning 2 days ago. His family is present at bedside this morning and indicates that he has had Alzheimer's dementia for many years and has been evaluated by a specialist at [facility]. He is prescribed both donepezil and memantine for his dementia. These medications have been managed by his primary care physician. His daughter indicates that he had a similar presentation with acute confusion in the past that was likely related to a urinary tract infection. His dementia has been a progressive problem although he is typically pleasant and cooperative. He has had some difficulty with insomnia and mild anxiety as well for which he is prescribed escitalopram. Recent lab evaluation has revealed a mild leukopenia and thrombocytopenia. He has been receiving empiric doxycycline IV. His mental status is markedly improved according to his family this morning who indicates that he seems to be behaving like his usual self. The patient denies headache, fever, chills, myalgias or other systemic symptoms at this time although he is an unreliable historian. Allergies Allergy/AdvReac Type Severity Reaction Status Date / Time No Known Allergies Allergy Verified 08/30/18 22:11 Home Medications Home Medications Medication Instructions Recorded Confirmed Type aspirin [Aspir-81] 81 mg PO DAILY 08/29/18 08/30/18 History donepezil 10 mg PO DAILY 08/29/18 08/30/18 History escitalopram oxalate 10 mg PO DAILY 08/29/18 08/30/18 History lisinopril 2.5 mg PO DAILY 08/29/18 08/30/18 History memantine 5 mg PO BID 08/29/18 08/30/18 History metformin 500 mg PO QAM 08/29/18 08/30/18 History tamsulosin 0.4 mg PO DAILY 08/29/18 08/30/18 History Patient History Medical History HTN (hypertension) (Chronic) Diabetes (Chronic) Hyperlipidemia (Chronic) UTI (urinary tract infection) (Acute) Skin cancer Family History Other Family history non-contributory Social History Preferred Language: [place] Citizen Communication Ability: Effective Radio Rigger Required: No Beliefs That Will Affect Care: None Current Living Situation: Significant Other Feels Safe at Home: Yes Smoking Status: Former smoker Hx Alcohol Use: No Hx Substance Use: No Review of Systems Constitutional: no fever, no chills, no body aches and no fatigue Eyes: no blind spots and no diplopia Ear, Nose, Mouth, Throat: + hearing loss Respiratory: no cough and no dyspnea Cardiovascular: no chest pain and no palpitations Gastrointestinal: no nausea and no vomiting Genitourinary: no dysuria Musculoskeletal: no neck pain and no myalgia Integumentary: no rash and no lesions Neurologic: + behavioral changes, + confusion and + memory loss; no falls, no localized weakness, no paralysis, no numbness, no lack of coordination, no tremor(s), no abnormal movements, no syncope and no headache(s) Psychiatric: as per Subjective / HPI, + behavioral changes and + anxiety; no hallucinations Hematologic / Lymphatic: no easy bleeding and no easy bruising Physical Exam Physical Exam: The patient is a well-developed elderly male. He is sitting up comfortably in bed in no acute distress. He is pleasant, cooperative, and nonagitated. He is alert and oriented to person only. He recognizes his family members at bedside. Recent and remote memory are impaired. He is attentive although concentration is impaired. He is able to name objects and repeat phrases. Fund of knowledge is limited although he has normal comprehension of vocabulary. Visual wright full to confrontation. Pupils equal round reactive t o light and accommodation. Eye movements intact. Facial sensation intact. There is no facial droop or weakness. There is diminished hearing to finger rub bilaterally. Palate elevates to midline. Shoulder shrug intact. Tongue protrudes to midline. Sensation intact all modalities in all 4 limbs. Deep tendon reflexes are intact and symmetrical for the arms and legs. Plantar responses downgoing bilaterally. There is no dysdiadochokinesia or dysmetria [id number]-[id number]-rugy or swzl-oi-zils bilaterally. Ophthalmoscopic examination reveals normal-appearing optic disks and posterior segments. No papilledema or hemorrhages. Carotid pulses normal bilaterally, no bruits to auscultation. Gait and station not tested due to safety concerns. Patient exhibits normal muscle strength and tone for all 4 limbs. No atrophy. No abnormal movements observed. Results & Data Vital Signs (Past 12 Hours) Vital Signs Temp Pulse Pulse Resp BP Pulse Ox 09/01/18 07:51 36.9 C 102 H 18 149/79 H 94 08/31/18 23:00 66 08/31/18 21:29 36.8 C 66 21 160/74 H 94 Laboratory Results This morning's labs reviewed. WBC 3.15, hemoglobin 13.4, platelet count 81, sodium 134, BUN 15, creatinine 1.23, glucose 133, calcium 8.0 A TSH and Lyme screen completed yesterday were negative. Diagnostic Findings A CT of the head completed yesterday revealed age-related involutional changes with moderate subcortical and periventricular microangiopathic change. 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 There is no hemorrhage or evidence of acute process. An electrocardiogram completed yesterday revealed a normal sinus rhythm, 77 bpm.
[2018-09-01] MEDS: DOXYCYCLINE HYCLATE 100 MG CAP PO SCH (20:32)
[2018-09-01] MEDS: ENOXAPARIN INJ 30 MG/0.3 ML SYR SQ SCH (20:32)
--- NOTE | 2018-09-01 23:54 | Hospitalist Progress Note ---
Date of Service September 01, 2018 Assessment & Plan (1) Confusion: Suspect acute delirium, etiology uncertain. Concern for infectious source given high fever tonight. ?tick borne illness - patient with dog that has had ticks on him of late. Patient denies recent tick bites. ?encephalitis? neck supple, no meningismus -Admit to medical floor -Patient is admitted with acute encephalopathy in the setting of advanced alzheimer's dementia. -Patient is improving today. -Likely will be here over weekend. -IGGG is negative. -Doubt lyme but awaiting results of tick borne illness, Lyme negative, Anaplasmosis/Erlichiosis pending = patient with fever, fatigue/weakness as well as leukopenia and thrombocytopenia -Frequent orientation and delirium prevention strategies -Empiric Doxy 100mg IV BID -Follow culture results (2) Alzheimer's dementia: At higher risk for delirium. reports patient is fairly independent at baseline -Continue Aircept and Namenda -Delirium prevention strategies as above (3) Diabetes: ISS. CC diet Continue to monitor (4) HTN (hypertension): Blood pressure stable -Continue Lisinopril -Continue to monitor Spent 35 minutes in managemnet of patient. Subjective Family is at bedside as I walked in the room. Patient appears to be doing better. Patient is more communicative. Patient though does not provide significant history. Review of Systems Review of Systems: Unobtainable due to mental health condition Physical Exam Physical Exam: Gen: Patient appears to be doing well. Patient is oriented to person, stutters, no facial droop Skin: intact, no rash HEENT: NC/AT, PERRL, neck supple, no JVD Heart: +S1/S2, regular, no m/r/g Lungs; CTA anteriorly, no rales/rhonchi/wheezes Abd: +BS, soft, NT/ND Ext: no edema Neuro: nonfocal, moves all 4 extremities. 5/5 MUSCLE strength in lower extremity Results & Data Vital Signs (Past 12 Hours) Vital Signs Temp Pulse Resp BP BP Pulse Ox 09/01/18 22:52 36.8 C 58 L 18 144/74 H 93 09/01/18 19:53 36.4 C L 55 L 18 126/69 91 09/01/18 16:01 36.4 C L 55 L 18 126/69 91 (1) Alzheimer's dementia Alzheimer's disease onset: unspecified onset Dementia behavioral disturbance: without behavioral disturbance Qualified Code(s): G30.9 - Alzheimer's disease, unspecified; F02.80 - Dementia in other diseases classified elsewhere without behavioral disturbance
[2018-09-02] MEDS: DONEPEZIL HCL 10 MG TAB PO SCH (09:22)
[2018-09-02] MEDS: INSULIN ASPART 100 UNITS/ML 3 ML PEN SC SCH ×4 (09:22→21:10)
[2018-09-02] MEDS: ESCITALOPRAM OXALATE 10 MG TAB PO SCH (09:23)
[2018-09-02] MEDS: ASPIRIN 81 MG ECTAB PO SCH (09:23)
[2018-09-02] MEDS: MEMANTINE HCL 5 MG TAB PO SCH ×2 (09:23→20:07)
[2018-09-02] MEDS: TAMSULOSIN HCL 0.4 MG CAP PO SCH (09:23)
[2018-09-02] MEDS: DOXYCYCLINE HYCLATE 100 MG CAP PO SCH ×2 (09:24→20:06)
[2018-09-02] MEDS: LISINOPRIL 2.5 MG TAB PO SCH (09:24)
[2018-09-02] MEDS: ENOXAPARIN INJ 30 MG/0.3 ML SYR SQ SCH (20:06)
--- NOTE | 2018-09-02 22:24 | Hospitalist Progress Note ---
Date of Service September 02, 2018 Assessment & Plan (1) Confusion: Suspect acute delirium, etiology uncertain. Concern for infectious source given high fever tonight. ?tick borne illness - patient with dog that has had ticks on him of late. Patient denies recent tick bites. ?encephalitis? neck supple, no meningismus -Admit to medical floor -Patient is admitted with acute encephalopathy in the setting of advanced alzheimer's dementia. -Patient has been slowly improving throughout stay. -Likely will be here over weekend. -IGG and IgM are negative for lyme. -Doubt lyme but awaiting results of tick borne illness, Lyme negative, Anaplasmosis/Erlichiosis pending = patient with fever, fatigue/weakness as well as leukopenia and thrombocytopenia Will continue doxy for now. -Frequent orientation and delirium prevention strategies -Empiric Doxy 100mg IV BID -Follow culture results (2) Alzheimer's dementia: At higher risk for delirium. reports patient is fairly independent at baseline -Continue Aircept and Namenda -Delirium prevention strategies as above (3) Diabetes: ISS. CC diet Continue to monitor (4) HTN (hypertension): Blood pressure stable -Continue Lisinopril -Continue to monitor Spent 25 minutes in managemnet of patient. Subjective Family is at bediside and states patient is close to baseline. Patient is asking to be discharged. Pending placement. No complaints at this time. Review of Systems Review of Systems: Unobtainable due to mental health condition Physical Exam Physical Exam: Gen: Patient appears to be doing well. Patient is oriented to person, no facial droop Skin: intact, no rash HEENT: NC/AT, PERRL, neck supple, no JVD Heart: +S1/S2, regular, no m/r/g Lungs; CTA anteriorly, no rales/rhonchi/wheezes Abd: +BS, soft, NT/ND Ext: no edema Neuro: nonfocal, moves all 4 extremities. 5/5 MUSCLE strength in lower extremity Results & Data Vital Signs (Past 12 Hours) Vital Signs Temp Pulse Resp BP Pulse Ox 09/02/18 16:27 36.6 C 60 20 109/58 L 93 09/02/18 11:48 36.6 C 45 L 20 131/73 93 (1) Alzheimer's dementia Alzheimer's disease onset: unspecified onset Dementia behavioral disturbance: without behavioral disturbance Qualified Code(s): G30.9 - Alzheimer's disease, unspecified; F02.80 - Dementia in other diseases classified elsewhere without behavioral disturbance
[2018-09-03] MEDS: LISINOPRIL 2.5 MG TAB PO SCH (09:47)
[2018-09-03] MEDS: MEMANTINE HCL 5 MG TAB PO SCH ×2 (09:47→20:03)
[2018-09-03] MEDS: DOXYCYCLINE HYCLATE 100 MG CAP PO SCH ×2 (09:48→20:03)
[2018-09-03] MEDS: DONEPEZIL HCL 10 MG TAB PO SCH (09:48)
[2018-09-03] MEDS: TAMSULOSIN HCL 0.4 MG CAP PO SCH (09:48)
[2018-09-03] MEDS: ASPIRIN 81 MG ECTAB PO SCH (09:49)
[2018-09-03] MEDS: ESCITALOPRAM OXALATE 10 MG TAB PO SCH (09:49)
[2018-09-03] MEDS: INSULIN ASPART 100 UNITS/ML 3 ML PEN SC SCH ×4 (09:53→20:05)
[2018-09-03] MEDS: ENOXAPARIN INJ 30 MG/0.3 ML SYR SQ SCH (20:03)
--- NOTE | 2018-09-03 22:37 | Hospitalist Progress Note ---
Date of Service September 03, 2018 Assessment & Plan (1) Confusion: Suspect acute delirium, etiology uncertain. Concern for infectious source given high fever tonight. ?tick borne illness - patient with dog that has had ticks on him of late. Patient denies recent tick bites. ?encephalitis? neck supple, no meningismus -Admit to medical floor -Patient is admitted with acute encephalopathy in the setting of advanced alzheimer's dementia. -Patient has been slowly improving throughout stay. -Likely will be here over weekend. -IGG and IgM are negative for lyme. -Doubt lyme but awaiting results of tick borne illness, Lyme negative, Anaplasmosis/Erlichiosis pending = patient with fever, fatigue/weakness as well as leukopenia and thrombocytopenia Will continue doxy for now. -Frequent orientation and delirium prevention strategies -Empiric Doxy 100mg IV BID -Stop doxy once anaplamsa and erlich return negative. May switch to PO at discharge. (2) Alzheimer's dementia: At higher risk for delirium. reports patient is fairly independent at baseline -Continue Aircept and Namenda -Delirium prevention strategies as above (3) Diabetes: ISS. CC diet Continue to monitor (4) HTN (hypertension): Blood pressure stable -Continue Lisinopril -Continue to monitor Spent 25 minutes in managemnet of patient. Subjective Son is at bedside, state that he has returned to baseline. No new complaints. Review of Systems Review of Systems: All systems reviewed & are unremarkable except as noted in HPI & below Physical Exam Physical Exam: Gen: Patient appears to be doing well. Patient is oriented to person, stutters, no facial droop Skin: intact, no rash HEENT: NC/AT, PERRL, neck supple, no JVD Heart: +S1/S2, regular, no m/r/g Lungs; CTA anteriorly, no rales/rhonchi/wheezes Abd: +BS, soft, NT/ND Ext: no edema Neuro: nonfocal, moves all 4 extremities. 5/5 MUSCLE strength in lower extremity Results & Data Vital Signs (Past 12 Hours) Vital Signs Temp Pulse Pulse Resp BP BP Pulse Ox 09/03/18 19:57 36.9 C 62 18 158/74 H 93 09/03/18 15:48 36.4 C L 54 L 18 158/74 H 94 (1) Alzheimer's dementia Alzheimer's disease onset: unspecified onset Dementia behavioral disturbance: without behavioral disturbance Qualified Code(s): G30.9 - Alzheimer's disease, unspecified; F02.80 - Dementia in other diseases classified elsewhere without behavioral disturbance
[2018-09-04] MEDS: TAMSULOSIN HCL 0.4 MG CAP PO SCH (09:21)
[2018-09-04] MEDS: DOXYCYCLINE HYCLATE 100 MG CAP PO SCH (09:21)
[2018-09-04] MEDS: LISINOPRIL 2.5 MG TAB PO SCH (09:21)
[2018-09-04] MEDS: ESCITALOPRAM OXALATE 10 MG TAB PO SCH (09:21)
[2018-09-04] MEDS: ASPIRIN 81 MG ECTAB PO SCH (09:21)
[2018-09-04] MEDS: MEMANTINE HCL 5 MG TAB PO SCH (09:21)
[2018-09-04] MEDS: DONEPEZIL HCL 10 MG TAB PO SCH (09:22)
[2018-09-04] MEDS: INSULIN ASPART 100 UNITS/ML 3 ML PEN SC SCH ×2 (09:24→12:55)
--- NOTE | 2018-09-04 16:20 | Discharge Summary ---
Date of Service September 04, 2018 Admission HPI Per Admitting Provider 83yo male with history of HTN, HLP, DM and Alzheimers dementia presenting with worsening mental status. History obtained from and children at bedside. Report that patient was out shopping in [facility] yesteray. Patient became uncooperative, didn't want to get out of the car, was picking at the car and opening the door while driving, then got out of the car and was walking around in his stocking feet. Principal Diagnosis Fever, suspected tick born illness Discharge Exam Constitutional WD/WN, vitals as above no acute distress Eyes PERRL, conjunctivae normal, anicteric sclerae ENMT external ear and nose normal, oropharynx normal Neck trachea midline, no thyromegaly Respiratory normal respiratory effort, lungs clear to auscultation Cardiovascular RRR, no murmur, no edema Gastrointestinal (Abdomen) normal bowel sounds, soft, nontender, no hepatosplenomegaly Musculoskeletal no cyanosis or clubbing, extremities motor strength 5/5 Skin no rashes, warm and dry Neurologic patellar DTR's 2+ bilat, sensation intact and PERRL, EOMI, accommodation nl, no face palsy, no dysarthria Psychiatric Orientation: alert, oriented to person and cooperative; + not oriented to place and + not oriented to time Lymphatic no cervical or axillary lymphadenopathy Discharge Data Allergies Allergy/AdvReac Type Severity Reaction Status Date / Time No Known Allergies Allergy Verified 08/30/18 22:11 Consultations 08/30/18 19:59 ED Decision to Admit Stat 08/30/18 23:04 Consult Case Management - Discharge Planning Routine 08/31/18 17:36 Consult Neurology Routine Ordered Studies 08/30/18 17:46 CT abd pelvis IV con only Stat CT head/brain wo con Stat Hospital Course (1) Confusion: Suspect acute delirium, etiology uncertain. Concern for infectious source given high fever. ?tick borne illness - patient with dog that has had ticks on him of late. Patient denies recent tick bites. ?encephalitis? neck supple, no meningismus -Patient is admitted with acute encephalopathy in the setting of advanced alzheimer's dementia. -Patient improved over two days, returned to baseline mental status and strength per family -IGG and IgM are negative for lyme. -Doubt lyme but awaiting results of tick borne illness, Lyme negative, Anaplasmosis/Erlichiosis pending = patient with fever, fatigue/weakness as well as leukopenia and thrombocytopenia treated with Doxycycline 100mg BID fever resolved, strength improved, mental status back to baseline discharge to home on Doxycycline 100mg BID for ten more days PCP can follow up on send out studies (2) Alzheimer's dementia: At higher risk for delirium. reports patient is fairly independent at baseline -Continue Aircept and Namenda -Delirium prevention strategies as above (3) Diabetes: ISS. CC diet Continue to monitor no hypoglycemia while admitted (4) HTN (hypertension): Blood pressure stable -Continue Lisinopril Total Time Total Time Spent Total Time Spent (In Minutes): 35 minutes Total Time Includes: Examination of the Patient, Discharge Planning, Medication Reconciliation, Communication With Other Providers and Other (discussion with family at the bedside) Discharge Plan Discharge Items Patient Disposition: Home - Home Health Services Reason For Visit: DELIRIUM,FEVER Discharge Diagnosis: Delirium, fever Dementia Possible tick borne illness, results pending Condition: Good Discharge Goals: Improve disease control and Improve function Activity: Resume your previous activity Activity Comment: ambulate with family/friends, participate in home health Bathing: No limitations Exercise/Sports: Gradually increase as tolerated Driving/Machine Use Comment: no driving Non-emergency contact: Primary Care Provider Call non-emergency contact if: you have any medication questions, your symptoms worsen and you have a fever Follow-up/Referrals: Zander Dougherty MD [Primary Care Provider] - Diet: Carb Consistent or DM2 Addtl Provider Instructions: Medications: - DOXYCYCLINE: 100mg twice a day for 10 more days Fever, delirium on dementia unclear etiology, but no fever since admission, no fever while on the Doxy cycline no abnormal findings on chest x-ray, CT abdomen or CT head Lyme screen, Flu screen negative send out testing for definitive Lyme, Erlichiosis and Anaplasmosis still pending continue the Doxycycline until tests back, will send d/c summary to Dr. Shaggy Peña so he knows to follow up on results FOLLOW UP - Dr. Shaggy Peña in one week, call for appt Patient's partner NEEDS to be present for follow up appointment, she needs to go into the room with him to discuss things with Dr. Shaggy Peña Prescriptions: New doxycycline hyclate 100 mg Capsule 100 mg PO BID 10 Days Qty: 20 RF: 0 Continued escitalopram oxalate 10 mg tablet 10 mg PO DAILY RF: 0 tamsulosin 0.4 mg capsule 0.4 mg PO DAILY RF: 0 memantine 5 mg tablet 5 mg PO BID RF: 0 aspirin [Aspir-81] 81 mg Tablet,Delayed Release (Dr/Ec) 81 mg PO DAILY RF: 0 donepezil 10 mg tablet 10 mg PO DAILY RF: 0 metformin 500 mg tablet 500 mg PO QAM RF: 0 lisinopril 2.5 mg tablet 2.5 mg PO DAILY RF: 0 Stand-Alone Forms: [facility] Discharge Orders: Discharge Order (Routine); Ordered 09/04/18 Ordered By: Pietro Doran Admission Data Admit Date/Time: 08/30/18 21:55 Attending Provider: Pietro Doran Admit Provider: Lamar Baez Primary Care Provider: Zander Dougherty Other Providers: Lamar Baez ; [employer] Service: Medical Other Interventions: Discharge Summary Assessment (RN) Last Done: 09/04/18 16:06 DC Date/Time DO NOT enter until pt leaves facility: 09/04/18 17:53
[2018-09-05 19:06] LABS: Anaplasma phagocytophila IgM <1:20 (<1:20); Ehrlichia chaff IgM Ab <1:20 (<1:20); Ehrlichia chaff Interpret Past Infection
[2018-09-07 02:39] LABS: 18KDIGG Band NONREACTIVE (NONREACTIVE); 23KDIGG Band NONREACTIVE (NONREACTIVE); 23KDIGM Band NONREACTIVE (NONREACTIVE); 28KDIGG Band NONREACTIVE (NONREACTIVE); 30KDIGG Band NONREACTIVE (NONREACTIVE); 39KDIGG Band NONREACTIVE (NONREACTIVE); 39KDIGM Band NONREACTIVE (NONREACTIVE); 41KDIGG Band NONREACTIVE (NONREACTIVE); 41KDIGM Band REACTIVE (NONREACTIVE); 45KDIGG Band NONREACTIVE (NONREACTIVE); 58KDIGG Band NONREACTIVE (NONREACTIVE); 66KDIGG Band NONREACTIVE (NONREACTIVE); 93KDIGG Band NONREACTIVE (NONREACTIVE); Lyme Antibodies, WB IgG NEGATIVE (NEGATIVE); Lyme Antibodies, WB IgM NEGATIVE (NEGATIVE)
== END 2018-09-04 17:53 | disposition home health service (06) | DRG 947 ==
LOC: ED 17:36 → SUATTDRO 21:55 → 2N 21:55

== ENCOUNTER 2019-07-26 07:36 | Inpatient (IN) ==
--- NOTE | 2019-07-26 08:07 | XRay Report ---
XR chest 1V portable CLINICAL HISTORY: 84 years-old Male presenting with weakness. TECHNIQUE: Portable semiupright AP view of the chest was obtained. COMPARISON: 08/30/2018. FINDINGS: Atherosclerosis of the aortic arch. Cardiac silhouette normal in size. Calcified left hilar lymph nod es may be present suggesting a history of chronic granulomatous disease. No focal opacity. No large e ffusion or pneumothorax. Degenerative changes of the thoracic spine. Upper abdomen normal. IMPRESSION: 1. No acute cardiopulmonary disease. ACT 112: Negative or not required by law. Electronically signed by: Sabino Kelley M.D. 07/26/2019 8:06 AM
[2019-07-26 08:17] LABS: Basophils # (auto) 0.02 K/uL (0-0.2); Basophils % (auto) 0.2 %; Eosinophils # (auto) 0.06 K/uL (0-0.5); Eosinophils % (auto) 0.6 %; Hematocrit (blood only) 55.6 % (42-52); Hemoglobin 18.8 g/dL (14.0-18.0); Immature Granulocytes # (auto) 0.02 K/uL (0.00-0.02); Immature Granulocytes % (auto) 0.2 %; Lymphocytes # (auto) 1.99 K/uL (1.2-3.4); Lymphocytes % (auto) 18.8 %; Mean Corpuscular Hemoglobin 29.6 pg (25-34); Mean Corpuscular Hgb Conc 33.8 g/dL (32-36); Mean Corpuscular Volume 87.4 fL (80-100); Mean Platelet Volume 12.2 fL (7.4-10.4); Monocytes # (auto) 1.13 K/uL (0.11-0.59); Monocytes % (auto) 10.7 %; Neutrophils # (auto) 7.36 K/uL (1.4-6.5); Neutrophils % (auto) 69.5 %; Platelet Count 282 K/uL (130-400); RDW Standard Deviation 44.4 fL (36.4-46.3); Red Blood Count 6.36 M/uL (4.7-6.1); White Blood Count 10.58 K/uL (4.8-10.8)
[2019-07-26 08:50] LABS: Appearance Urine Clear (Clear); Bacteria Urine Automated Negative (Negative); Blood Urine Negative (Negative); Color Urine Dark Yellow; Epithelial Cell Urine Auto 20-30 /lpf (0-5); Glucose Urine UA Negative (Negative); Ketones Urine Trace (Negative); Leukocyte Esterase Urine Trace (Negative); Nitrite Urine Negative (Negative); Protein Urine Negative (Negative); RBC Urine Automated 0-4 /hpf (0-4); Urobilinogen Urine Negative (Negative)
[2019-07-26 09:02] LABS: Bilirubin Urine Negative (Negative); Ictotest Urine Negative (Negative)
[2019-07-26 09:27] LABS: Albumin Globulin Ratio 0.7 (0.9-2); Albumin Level 3.3 gm/dl (3.4-5.0); BUN Creatinine Ratio 31.3 (10-20); Bilirubin,Total 1.3 mg/dl (0.2-1); Calcium 9.7 mg/dl (8.5-10.1); Creatinine Clr Calc Pharmacy 25.3 ml/min; Est GFR (African American) 34.3; Est GFR (Non-African American) 29.6; Globulin 4.5 gm/dl (2.5-4.0); Total Protein 7.8 gm/dl (6.4-8.2)
[2019-07-26] MEDS ORDERED: SODIUM CHLORIDE 0.9% 1000ML 1,000 ML IV ONE (09:50)
--- NOTE | 2019-07-26 10:06 | Emergency Department Note ---
History of Present Illness General Chief complaint: Altered Mental Status Stated complaint: lethargic Time Seen by Provider: 07/26/19 07:45 Source: patient Mode of arrival: EMS Limitations: altered mental status History of Present Illness Provider complaint: Altered mental status Onset (ago): day(s) 1 Severity: moderate Maximum Pain Intensity: 0 Relieved By: + none Exacerbated By: + none Associated symptoms: + denies other symptoms Treatments prior to arrival: none This is a 84-year-old male who presents to the ED from a local correction. The patient is normally demented and agitated with advanced dementia. The patient was brought here because the patient was sedated and not acting his normal self. The patient also was noted to have a pulse ox of 88% on room air at the correction. The patient has had decreased p.o. intake according to the daughter. The patient's exam does reveal that he is somewhat sedated. His mucous membranes are dry. Exam was otherwise unremarkable. The patient's vital signs reveal tachycardia. An EKG shows a sinus tach with a right bundle branch block and no acute ischemic changes. Home Medications Home Medications Medication Instructions Recorded Confirmed Type aspirin [Aspir-81] 81 mg PO HS 08/29/18 07/26/19 History escitalopram oxalate 10 mg PO QAM 08/29/18 07/26/19 History metformin 500 mg PO QAM 08/29/18 07/26/19 History tamsulosin 0.4 mg PO QAM 08/29/18 07/26/19 History lorazepam 0.5 mg PO DAILY PRN 06/05/19 07/26/19 History mirtazapine 7.5 mg PO DAILY 07/26/19 07/26/19 History olanzapine 2.5 mg PO DAILY 07/26/19 07/26/19 History olanzapine 5 mg PO DAILY 07/26/19 07/26/19 History Allergies Allergy/AdvReac Type Severity Reaction Status Date / Time No Known Allergies Allergy Verified 07/26/19 08:28 Past Med/Surg History Medical History Alzheimer disease Diabetes (Chronic) HTN (hypertension) (Chronic) Hyperlipidemia (Chronic) Skin cancer UTI (urinary tract infection) (Acute) Family History Other Family history non-contributory Social History Preferred Language: Indonesian Communication Ability: Effective Printing Film Stripper Required: No Beliefs That Will Affect Care: None Current Living Situation: Significant Other Feels Safe at Home: Yes Smoking Status: Unknown if ever smoked Hx Alcohol Use: No Hx Substance Use: No Review of Systems A total of 10 systems reviewed and were otherwise negative Physical Exam Vital Signs Vital Signs - 24 hr 07/26/19 07:56 07/26/19 08:25 07/26/19 09:25 Temperature 36.4 C L Temperature Source Oral Pulse Rate 108 H Pulse Rate [Apical] 120 H Pulse Rhythm [Apical] Regular Pulse Strength [Apical] Normal Respiratory Rate 18 20 Respiratory Effort / Characteristics Non-Labored Spontaneous Respiratory Depth Normal Respiratory Pattern Regular Blood Pressure 108/87 Blood Pressure Mean 94 Pulse Oximetry 99 99 99 Oxygen Delivery Method Room Air Room Air Room Air Sepsis Recent Fever Within 48 Hours No Sepsis New/Unexplained Change in Mental Status No Sepsis Action Taken by Nursing No Action Required CONSTITUTIONAL/VITAL SIGNS: Reviewed / noted above. GENERAL: Non-toxic in appearance. INTEGUMENTARY: Warm, dry, and [place]. HEAD: Normocephalic. EYES: without scleral icterus or trauma. ENT/OROPHARYNX: clear and dry. LYMPHADENOPATHY/NECK: Is supple without lymphadenopathy or meningismus. RESPIRATORY: Lungs clear and equal. CARDIOVASCULAR: Regular rate and rhythm. GI/ABDOMEN: Soft and nontender. No organomegaly or pulsatile mass. No rebound or guarding. Normal bowel sounds. EXTREMITIES: Warm and well perfused. BACK: No CVA tenderness. NEUROLOGICAL: Demented. Does not follow commands. Seems somewhat sedated. PSYCHIATRIC: normal affect. MUSCULOSKELETAL: Normally developed with good muscle tone. TRIAGE NURSING DOCUMENTATION REVIEWED. Course Administered Medications Sodium Chloride (Nss 1000ml) 1,000 mls @ 999 mls/hr IV .Q1H1M ONE Stop: 07/26/19 10:50 Last Admin: 07/26/19 09:53 Dose: 999 mls/hr Documented by: [id number] Medical Decision Making Differential Diagnosis Differential includes acute coronary syndrome, myocardial infarction, CVA, TIA, anemia, infection, pneumonia, UTI, pyelonephritis, poor nutrition, dehydration, electrolyte disturbance,hypoglycemia. Medical Records Attestation: I reviewed the patient's medical records. Home Medications Current Medication List: was personally reviewed by me Laboratory Data Attestation: I reviewed the patient's lab results. Result diagrams: 07/26/19 07:55 07/26/19 09:38 Lab Results 07/26/19 07/26/19 07/26/19 Range/Units 07:55 07:55 08:19 WBC 10.58 (4.8-10.8) K/uL RBC 6.36 H (4.7-6.1) M/uL Hgb 18.8 H (14.0-18.0) g/dL Hct 55.6 H (42-52) % MCV 87.4 (80-100) fL MCH 29.6 (25-34) pg MCHC 33.8 (32-36) g/dL RDW Std Deviation 44.4 (36.4-46.3) fL RDW Coeff of Daniella 14.0 (11.5-14.5) % Plt Count 282 (130-400) K/uL MPV 12.2 H (7.4-10.4) fL Immature Gran % (Auto) 0.2 % Neut % (Auto) 69.5 % Lymph % (Auto) 18.8 % [place] % (Auto) 10.7 % Eos % (Auto) 0.6 % Baso % (Auto) 0.2 % Immature Gran # (Auto) 0.02 (0.00-0.02) K/uL Neut # (Auto) 7.36 H (1.4-6.5) K/uL Lymph # (Auto) 1.99 (1.2-3.4) K/uL [place] # (Auto) 1.13 H (0.11-0.59) K/uL Eos # (Auto) 0.06 (0-0.5) K/uL Baso # (Auto) 0.02 (0-0.2) K/uL Sodium 150 H (136-145) mmol/L Potassium (3.5-5.1) mmol/L Chloride 117 H (98-107) mmol/L Carbon Dioxide 29 (21-32) mmol/L Anion Gap 4.0 (3-11) BUN 63 H (7-18) mg/dl Creatinine 2.01 H (0.6-1.4) mg/dl Est Cr Clr Drug Dosing 25.3 ml/min Est GFR ( Amer) 34.3 Est GFR (Non-Af Amer) 29.6 BUN/Creatinine Ratio 31.3 H (10-20) Glucose 331 H* (70-99) mg/dl Calcium 9.7 (8.5-10.1) mg/dl Total Bilirubin 1.3 H (0.2-1) mg/dl AST (15-37) U/L ALT 90 H (12-78) U/L Alkaline Phosphatase 152 H (45-117) U/L Total Protein 7.8 (6.4-8.2) gm/dl Albumin 3.3 L (3.4-5.0) gm/dl Globulin 4.5 H (2.5-4.0) gm/dl Albumin/Globulin Ratio 0.7 L (0.9-2) Beta-Hydroxybutyric Acd (0.2-2.81) mg/dl TSH 3.000 (0.300-4.500) uIu/ml Urine Color Dark Yellow Urine Appearance Clear (Clear) Urine pH 5.0 (4.5-7.5) Ur Specific [place] 1.030 (1.000-1.030) Urine Protein Negative (Negative) Urine Glucose (UA) Negative (Negative) Urine Ketones Trace H (Negative) Urine Blood Negative (Negative) Urine Nitrite Negative (Negative) Urine Bilirubin Negative (Negative) Urine Urobilinogen Negative (Negative) Ur Leukocyte Esterase Trace H (Negative) Urine WBC (Auto) 1-5 (0-5) /hpf Urine RBC (Auto) 0-4 (0-4) /hpf U Hyaline Cast (Auto) 5-10 H (0-5) /lpf U Epithel Cells (Auto) 20-30 H (0-5) /lpf Urine Bacteria (Auto) Negative (Negative) 07/26/19 Range/Units 09:38 WBC (4.8-10.8) K/uL RBC (4.7-6.1) M/uL Hgb (14.0-18.0) g/dL Hct (42-52) % MCV (80-100) fL MCH (25-34) pg MCHC (32-36) g/dL RDW Std Deviation (36.4-46.3) fL RDW Coeff of Daniella (11.5-14.5) % Plt Count (130-400) K/uL MPV (7.4-10.4) fL Immature Gran % (Auto) % Neut % (Auto) % Lymph % (Auto) % [place] % (Auto) % Eos % (Auto) % Baso % (Auto) % Immature Gran # (Auto) (0.00-0.02) K/uL Neut # (Auto) (1.4-6.5) K/uL Lymph # (Auto) (1.2-3.4) K/uL [place] # (Auto) (0.11-0.59) K/uL Eos # (Auto) (0-0.5) K/uL Baso # (Auto) (0-0.2) K/uL Sodium (136-145) mmol/L Potassium 4.0 (3.5-5.1) mmol/L Chloride (98-107) mmol/L Carbon Dioxide (21-32) mmol/L Anion Gap (3-11) BUN (7-18) mg/dl Creatinine (0.6-1.4) mg/dl Est Cr Clr Drug Dosing ml/min Est GFR ( Amer) Est GFR (Non-Af Amer) BUN/Creatinine Ratio (10-20) Glucose (70-99) mg/dl Calcium (8.5-10.1) mg/dl Total Bilirubin (0.2-1) mg/dl AST 24 (15-37) U/L ALT (12-78) U/L Alkaline Phosphatase (45-117) U/L Total Protein (6.4-8.2) gm/dl Albumin (3.4-5.0) gm/dl Globulin (2.5-4.0) gm/dl Albumin/Globulin Ratio (0.9-2) Beta-Hydroxybutyric Acd (0.2-2.81) mg/dl TSH (0.300-4.500) uIu/ml Urine Color Urine Appearance (Clear) Urine pH (4.5-7.5) Ur Specific [place] (1.000-1.030) Urine Protein (Negative) Urine Glucose (UA) (Negative) Urine Ketones (Negative) Urine Blood (Negative) Urine Nitrite (Negative) Urine Bilirubin (Negative) Urine Urobilinogen (Negative) Ur Leukocyte Esterase (Negative) Urine WBC (Auto) (0-5) /hpf Urine RBC (Auto) (0-4) /hpf U Hyaline Cast (Auto) (0-5) /lpf U Epithel Cells (Auto) (0-5) /lpf Urine Bacteria (Auto) (Negative) Imaging Data Radiologist's Impression: XR chest 1V portable CLINICAL HISTORY: 84 years-old Male presenting with weakness. TECHNIQUE: Portable semiupright AP view of the chest was obtained. COMPARISON: 08/30/2018. FINDINGS: Atherosclerosis of the aortic arch. Cardiac silhouette normal in size. Calcified left hilar lymph nodes may be present suggesting a history of chronic granulomatous disease. No focal opacity. No large effusion or pneumothorax. Degenerative changes of the thoracic spine. Upper abdomen normal. IMPRESSION: 1. No acute cardiopulmonary disease. ECG Data Attestation: I personally reviewed and interpreted this ECG as follows: Indication: + altered mental status Rate (beats per minute): 66 Rhythm: + normal sinus ECG Intervals/blocks: + Right Bundle branch block ECG ST segments: no ST elevation Blood Pressure Blood Pressure Findings: Normal blood pressure MDM Narrative The patient presents with decreased mental status and reported pulse ox of 88% on room air at [facility]. He is not hypoxic here. He has had decreased p.o. intake recently. The patient's exam reveals some findings suggesting dehydration. An EKG showed a sinus tach at a rate of 101 with a right bundle branch block. CBC was normal. Sodium is 150, BUN is 63 and creatinine is 2.0. Glucose is 331. Urine did not show infection. Chest x-ray was negative for acute disease. The patient's test results suggest acute renal failure related to dehydration. He was given a liter of normal saline IV here. He will be seen by the hospitalist for further inpatient evaluation and care. Impression & Plan Acute dehydration, Acute renal failure, AMS (altered mental status) Discharge Plan Visit Data Chief Complaint: Altered Mental Status Stated Complaint: lethargic ED Provider: [place] Discharge Problem: Acute dehydration, Acute renal failure, AMS (altered mental status) Patient Disposition: Being Evaluated by Hospitalist Forms Stand Alone Forms: [facility] Prescriptions Prescriptions: No Action lorazepam 0.5 mg tablet 0.5 mg PO DAILY PRN (Reason: Anxiety) RF: 0 escitalopram oxalate 10 mg tablet 10 mg PO QAM RF: 0 tamsulosin 0.4 mg capsule 0.4 mg PO QAM RF: 0 aspirin [Aspir-81] 81 mg Tablet,Delayed Release (Dr/Ec) 81 mg PO HS RF: 0 metformin 500 mg tablet 500 mg PO QAM RF: 0 olanzapine 5 mg tablet 5 mg PO DAILY RF: 0 olanzapine 2.5 mg tablet 2.5 mg PO DAILY RF: 0 mirtazapine 7.5 mg tablet 7.5 mg PO DAILY RF: 0 Referrals Referrals: [facility] [Primary Care Provider] -
--- NOTE | 2019-07-26 11:11 | History & Physical Report ---
Date of Service July 26, 2019 Assessment & Plan (1) Hypernatremia: 2nd to dehydration/poor oral intake in the setting of progressive/severe Alzheimer's dementia. Free water deficit is at least ~3 liters. Replace over 48 hours. Start 1/2 NS at 125cc/hr. Repeat BMP later tonight then again in am to ensure appropriate correction rate Once re-hydrated we will need to assess if patient is able to maintain proper nutrition/hydration. (2) Encephalopathy: Altered MS in the setting of severe, progressive dementia. Likely metabolic in etiology. Hypernatremia can contribute. Uncertain if there is an underlying infectious component. U/a no suggestive of UTI. CXR w/o pneumonia. Abnormal LFTs - check RUQ u/s, rule out biliary tract disease. Check flu PCR. At risk of COVID-19 given he was recently at the hospital in [place], advanced age, etc but no other indicators thus far of COVID (abnormal LFTs have been reported with COVID but he does not appear to have other indicators currently). Low threshold for testing if any fevers, cough, hypoxia, etc. (3) Acute dehydration: see above in "dehydration" (4) Acute renal failure: 2nd to dehydration. Hydrate, serial BMPs. If Cr does not improve with fluids alone then consider obstruction from BPH (renal u/s, place tran, etc). (5) HTN (hypertension): Hold alpha nikhil for now. (6) Abnormal LFTs: Etiology? Start with RUQ u/s. At minimum repeat LFTs in am. See discussion above in "encephalopathy." (7) Diabetes: HOLD metformin. q6h BSGs. Loose sliding scale - novolog - with correction factor of 50. Since NPO no carb coverage. Low threshold for basal insulin. (8) Hyperlipidemia: history of such but not taking any medications. (9) Severe protein-calorie malnutrition: 20kg weight loss in 2019. 2nd to end-stage dementia. Daughter was at bedside during my assessment. After he is re-hydrated we will need to reassess patient's status. If he does not improve on a global scale during this stay strongly consider palliative care consultation. He potentially may need SNF placement given his decline. (10) Alzheimer disease: By history end-stage/severe. Hold lexapro since unable to take PO; resume if able to take PO. Hold remeron due to altered MS. Hold zyprexa for now but low threshold to reinstitute such (was placed on this while at [facility]). Haldol 2mg IM prn agitation. (11) Chronic kidney disease, stage 3a: baseline CrCl <60 serial BMPs (12) DVT prophylaxis: heparin 5000 BID daughter confirmed that pt's desire would be DNR status admit to med/surg History of Present Illness Chief Complaint: lethargy Primary Care Provider: [facility] 84yo male with advanced Alzheimer's dementia and T2DM who presents from [facility] due to worsening lethargy, decreased PO intake, and failure to thrive. Step-daughter is at bedside during my admission assessment. Patient is unable to provide any information and thus all information was obtained from the ED provider and step-daughter. Apparently patient has been living at [facility] for about 2 months. In early June he had escalating agitation and was admitted to "[facility]" kwaku-psych unit at [facility] to treat his dementia with behavioral disturbance. He spent 3 weeks there for medication adjustment. At discharge he was released back to [facility] (about 10 days ago). Daughter states he was able to ambulate upon admission to [facility] but is now wheelchair-dependent. Since re-admission back to [facility] 10 days ago the report given to family has been of progressive decline - poor intake of liquids/solids, fatigue/lethargy, ongoing weight loss, etc. Thus, he was transferred to our hospital for evaluation. Allergies Allergy/AdvReac Type Severity Reaction Status Date / Time No Known Allergies Allergy Verified 07/26/19 08:28 Home Medications Home Medications Medication Instructions Recorded Confirmed Type aspirin [Aspir-81] 81 mg PO HS 08/29/18 07/26/19 History escitalopram oxalate 10 mg PO QAM 08/29/18 07/26/19 History metformin 500 mg PO QAM 08/29/18 07/26/19 History tamsulosin 0.4 mg PO QAM 08/29/18 07/26/19 History lorazepam 0.5 mg PO DAILY PRN 06/05/19 07/26/19 History mirtazapine 7.5 mg PO DAILY 07/26/19 07/26/19 History olanzapine 2.5 mg PO DAILY 07/26/19 07/26/19 History olanzapine 5 mg PO DAILY 07/26/19 07/26/19 History Past Med/Surg History Medical History Alzheimer disease Diabetes (Chronic) HTN (hypertension) (Chronic) Hyperlipidemia (Chronic) Skin cancer UTI (urinary tract infection) (Acute) Family History Father , "old age" No problems noted. Other Family history non-contributory Social History (Updated 07/26/19 @ 15:41 by Riaz Cárdenas) Preferred Language: Luxembourgish Communication Ability: dementia Communication Ability Comment: history of dementia Seed Collector Required: No Beliefs That Will Affect Care: None marital status: marital status details: 2x's; 4 bio children, multiple step-kids Current Living Situation: Personal Care Facility Current Living Situation Comment: [facility] Other Information That Helps Us Care for You: No Feels Safe at Home: Yes Safety Concerns: Feels Safe At This Time Smoking Status: Former smoker Do You Dip or Chew Tobacco: No ; Smoking End Date: early ; Second Hand Exposure: No ; Tobacco Cessation Education Requested by Patient: No Hx Alcohol Use: No Hx Substance Use: No Review of Systems Review of Systems: Unobtainable due to mental health condition and Unobtainable due to cognitive status Physical Exam Constitutional: + ill appearing, + thin, + cachectic and + altered mental status; + not well developed, + not well nourished, no acute distress and + not appropriately hydrated Eyes: PERRL ENMT: Mouth: + dry oral mucous membranes Neck: trachea midline, no thyromegaly Respiratory: normal respiratory effort, lungs clear to auscultation Cardiovascular: Rate/Rhythm: regular rate and regular rhythm Heart Sounds: normal S1 and normal S2; no murmur Vessels: posterior tibial pulses present and dorsalis pedis pulses present; no JVD Extremities: no edema Gastrointestinal (Abdomen): normal bowel sounds, soft, nontender, no hepatosplenomegaly Musculoskeletal: no obvious deformity of any limb; slight erythema over both knees - due to a fall? Skin: no generalized rashes; scabbed skin lesion inferior to left knee (medial aspect) Neurologic: moves all extremities Psychiatric: awake, but nonverbal; does not follow commands Lymphatic: no cervical lymphadenopathy Results & Data Results & [facility] ([facility] Vital Signs (Past 12 Hours) Vital Signs Temp Pulse Pulse Resp BP Pulse Ox 07/26/19 09:25 120 H 20 99 07/26/19 08:25 99 07/26/19 07:56 36.4 C L 108 H 18 108/87 99 Laboratory Results Laboratory Results - last 24 hr 07/26/19 07/26/19 07/26/19 07:55 07:55 07:58 WBC 10.58 RBC 6.36 H Hgb 18.8 H Hct 55.6 H MCV 87.4 MCH 29.6 MCHC 33.8 RDW Std Deviation 44.4 RDW Coeff of Daniella 14.0 Plt Count 282 MPV 12.2 H Immature Gran % (Auto) 0.2 Neut % (Auto) 69.5 Lymph % (Auto) 18.8 Glenn % (Auto) 10.7 Eos % (Auto) 0.6 Baso % (Auto) 0.2 Immature Gran # (Auto) 0.02 Neut # (Auto) 7.36 H Lymph # (Auto) 1.99 Glenn # (Auto) 1.13 H Eos # (Auto) 0.06 Baso # (Auto) 0.02 Sodium 150 H Potassium Chloride 117 H Carbon Dioxide 29 Anion Gap 4.0 BUN 63 H Creatinine 2.01 H Est Cr Clr Drug Dosing 25.3 Est GFR ( Amer) 34.3 Est GFR (Non-Af Amer) 29.6 BUN/Creatinine Ratio 31.3 H Glucose 331 H* POC Glucose Calcium 9.7 Magnesium Total Bilirubin 1.3 H AST ALT 90 H Alkaline Phosphatase 152 H C-Reactive Protein 8.85 H Total Protein 7.8 Albumin 3.3 L Globulin 4.5 H Albumin/Globulin Ratio 0.7 L Beta-Hydroxybutyric Acd Procalcitonin TSH 3.000 Urine Color Urine Appearance Urine pH Ur Specific [place] Urine Protein Urine Glucose (UA) Urine Ketones Urine Blood Urine Nitrite Urine Bilirubin Urine Urobilinogen Ur Leukocyte Esterase Urine WBC (Auto) Urine RBC (Auto) U Hyaline Cast (Auto) U Epithel Cells (Auto) Urine Bacteria (Auto) 07/26/19 07/26/19 07/26/19 07:58 07:58 08:19 WBC RBC Hgb Hct MCV MCH MCHC RDW Std Deviation RDW Coeff of Daniella Plt Count MPV Immature Gran % (Auto) Neut % (Auto) Lymph % (Auto) Glenn % (Auto) Eos % (Auto) Baso % (Auto) Immature Gran # (Auto) Neut # (Auto) Lymph # (Auto) Glenn # (Auto) Eos # (Auto) Baso # (Auto) Sodium Potassium Chloride Carbon Dioxide Anion Gap BUN Creatinine Est Cr Clr Drug Dosing Est GFR ( Amer) Est GFR (Non-Af Amer) BUN/Creatinine Ratio Glucose POC Glucose Calcium Magnesium 2.9 H Total Bilirubin AST ALT Alkaline Phosphatase C-Reactive Protein Total Protein Albumin Globulin Albumin/Globulin Ratio Beta-Hydroxybutyric Acd Procalcitonin 0.45 TSH Urine Color Dark Yellow Urine Appearance Clear Urine pH 5.0 Ur Specific [place] 1.030 Urine Protein Negative Urine Glucose (UA) Negative Urine Ketones Trace H Urine Blood Negative Urine Nitrite Negative Urine Bilirubin Negative Urine Urobilinogen Negative Ur Leukocyte Esterase Trace H Urine WBC (Auto) 1-5 Urine RBC (Auto) 0-4 U Hyaline Cast (Auto) 5-10 H U Epithel Cells (Auto) 20-30 H Urine Bacteria (Auto) Negative 07/26/19 07/26/19 07/26/19 09:38 11:23 12:57 WBC RBC Hgb Hct MCV MCH MCHC RDW Std Deviation RDW Coeff of Daniella Plt Count MPV Immature Gran % (Auto) Neut % (Auto) Lymph % (Auto) Glenn % (Auto) Eos % (Auto) Baso % (Auto) Immature Gran # (Auto) Neut # (Auto) Lymph # (Auto) Glenn # (Auto) Eos # (Auto) Baso # (Auto) Sodium Potassium 4.0 Chloride Carbon Dioxide Anion Gap BUN Creatinine Est Cr Clr Drug Dosing Est GFR ( Amer) Est GFR (Non-Af Amer) BUN/Creatinine Ratio Glucose POC Glucose 274 H 292 H Calcium Magnesium Total Bilirubin AST 24 ALT Alkaline Phosphatase C-Reactive Protein Total Protein Albumin Globulin Albumin/Globulin Ratio Beta-Hydroxybutyric Acd Procalcitonin TSH Urine Color Urine Appearance Urine pH Ur Specific [place] Urine Protein Urine Glucose (UA) Urine Ketones Urine Blood Urine Nitrite Urine Bilirubin Urine Urobilinogen Ur Leukocyte Esterase Urine WBC (Auto) Urine RBC (Auto) U Hyaline Cast (Auto) U Epithel Cells (Auto) Urine Bacteria (Auto) Diagnostic Findings cxr - no infiltrates EKG - my reading - sinus tach, ST changes laterally, RBBB Code Status & VTE Plan VTE Prophylaxis Plan VTE Prophylaxis will be ordered: Yes PG Care Time/CCT Total # of Minutes Spent Total Time Spent with Patient: Total time spent is greater than 50% in coordi nation of care (as documented) at patient's floor/unit and/or counseling patient: Coding Level of Care Code 23288 Initial Inpt Care Lvl 3 Diagnoses Hypernatremia E87.0 Encephalopathy G93.40 Acute dehydration E86.0 Acute renal failure N17.9 Acute renal failure type: unspecified HTN (hypertension) I10 Hypertension type: essential hypertension Abnormal LFTs R94.5 Diabetes E11.9 Diabetes mellitus complication status: without complication Diabetes mellitus rn long term care insulin use: without rn long term care use Diabetes mellitus type: type 2 Hyperlipidemia E78.2 Hyperlipidemia type: mixed hyperlipidemia Severe protein-calorie malnutrition E43 Alzheimer disease G30.9; F02.81 Alzheimer's disease onset: unspecified onset Dementia behavioral disturbance: with behavioral disturbance Chronic kidney disease, stage 3a N18.3 DVT prophylaxis Z29.9 (1) Diabetes Diabetes mellitus complication status: without complication Diabetes mellitus usp insulin use: without usp use Diabetes mellitus type: type 2 Qualified Code(s): E11.9 - Type 2 diabetes mellitus without complications (2) Acute renal failure Acute renal failure type: unspecified Qualified Code(s): N17.9 - Acute kidney failure, unspecified (3) Alzheimer disease Alzheimer's disease onset: unspecified onset Dementia behavioral disturbance: with behavioral disturbance Qualified Code(s): G30.9 - Alzheimer's disease, unspecified; F02.81 - Dementia in other diseases classified elsewhere with behavioral disturbance (4) Hyperlipidemia Hyperlipidemia type: mixed hyperlipidemia Qualified Code(s): E78.2 - Mixed hyperlipidemia (5) HTN (hypertension) Hypertension type: essential hypertension Qualified Code(s): I10 - Essential (primary) hypertension
[2019-07-26] MEDS: SODIUM CHLORIDE 0.45 % 1,000 ML IV SCH ×2 (11:20→18:23)
--- NOTE | 2019-07-26 12:19 | Ultrasound Report ---
US gallbladder CLINICAL HISTORY: 84 years-old Male presenting with altered MS, abnormal LFTs. TECHNIQUE: Real-time grayscale and limited color Doppler ultrasound imaging of the abdomen limited to the right upper quadrant was performed. COMPARISON: CT from 08/30/2018. FINDINGS: Pancreas: Visualized portions of the pancreatic head and body normal. Liver: Moderately hyperechogenic parenchyma with partial obscuration of the right hemidiaphragm, like ly indicating moderate steatosis. The liver measures 16.5 cm in maximal sagittal dimension. Hypoechog enicity in the gallbladder fossa likely indicates fatty sparing. Main portal vein patent with normal directional flow. Biliary: No intrahepatic biliary ductal dilatation. Common bile duct measures up to 5 mm in diameter. Gallbladder: Gallstones and gallbladder sludge without evidence of gallbladder distention, or pericho lecystic fluid or inflammatory change. Top normal thickness of the gallbladder wall with hyperechogen ic foci with comet tail artifact suggesting adenomyomatosis. Unable to assess sonographic Hodges's si gn. Right kidney: Normal in appearance without evidence of hydronephrosis. Ascites: None. Other: None. IMPRESSION: 1. Cholelithiasis. No biliary ductal dilatation. No overwhelming evidence of cholecystitis. 2. Hepatic steatosis. Correlate with liver function tests to exclude steatohepatitis as a cause for abdominal pain. ACT 112: Negative or not required by law. Electronically signed by: Sabino Kelley M.D. 07/26/2019 12:17 PM
[2019-07-26] MEDS ORDERED: ONDANSETRON INJ 2 MG/ML 2 ML VIAL IV PRN (12:31)
[2019-07-26] MEDS ORDERED: HALOPERIDOL LACTATE 5 MG/ML 1 ML VIAL IM PRN (12:31)
[2019-07-26] MEDS ORDERED: CARBOHYDRATES FOR HYPOGLYCEMIA PO PRN (13:00)
[2019-07-26] MEDS ORDERED: DEXTROSE 50% 50 ML SYRINGE IV PRN (13:00)
[2019-07-26] MEDS ORDERED: GLUCAGON FOR INJ 1 MG VIAL IM PRN (13:00)
[2019-07-26] MEDS ORDERED: GLUCOSE 40% GEL 15 GM TUBE PO PRN (13:00)
[2019-07-26] MEDS ORDERED: GLUCOSE 10 TABS/TUBE PO PRN (13:00)
[2019-07-26] MEDS: INSULIN ASPART 100 UNITS/ML 3 ML PEN SC SCH ×3 (13:01→18:20)
--- NOTE | 2019-07-26 13:10 | Electrocardiogram Report ---
Test Reason : Blood Pressure : / mmHG Vent. Rate : 101 BPM Atrial Rate : 101 BPM P-R Int : 120 ms QRS Dur : 130 ms QT Int : 400 ms P-R-T Axes : 080 087 078 degrees QTc Int : 518 ms Sinus tachycardia Right bundle branch block T wave abnormality, consider lateral ischemia Abnormal ECG When compared with ECG of 05-JUN-2019 12:03, Significant changes have occurred Confirmed by Oscar Heck ([id number]) on 07/26/2019 1:10:02 PM Referred By: [facility] Confirmed By:Oscar Heck
[2019-07-26] MEDS ORDERED: Nursing to Pharmacy Communication ONE (17:11)
[2019-07-26 17:48] LABS: BUN Creatinine Ratio 33.4 (10-20); Calcium 8.8 mg/dl (8.5-10.1); Creatinine Clr Calc Pharmacy 28.6 ml/min; Est GFR (African American) 39.7; Est GFR (Non-African American) 34.3; Potassium 4.1 mmol/L (3.5-5.1)
[2019-07-26 18:36] LABS: Influenza A virus by PCR Neg for Influ A (Neg); Influenza B virus by PCR Neg for Influ B (Neg)
[2019-07-26] MEDS: HEPARIN SOD 5,000 UNIT/0.5 ML VIAL SQ SCH (21:52)
[2019-07-27] MEDS: INSULIN ASPART 100 UNITS/ML 3 ML PEN SC SCH ×4 (00:36→18:10)
[2019-07-27] MEDS: SODIUM CHLORIDE 0.45 % 1,000 ML IV SCH ×2 (01:52→10:08)
[2019-07-27 05:16] LABS: Basophils # (auto) 0.01 K/uL (0-0.2); Basophils % (auto) 0.1 %; Eosinophils # (auto) 0.07 K/uL (0-0.5); Hematocrit (blood only) 49.3 % (42-52); Hemoglobin 16.4 g/dL (14.0-18.0); Immature Granulocytes # (auto) 0.04 K/uL (0.00-0.02); Immature Granulocytes % (auto) 0.6 %; Lymphocytes # (auto) 1.11 K/uL (1.2-3.4); Lymphocytes % (auto) 15.3 %; Mean Corpuscular Hemoglobin 29.2 pg (25-34); Mean Corpuscular Hgb Conc 33.3 g/dL (32-36); Mean Corpuscular Volume 87.9 fL (80-100); Mean Platelet Volume 11.6 fL (7.4-10.4); Monocytes # (auto) 0.72 K/uL (0.11-0.59); Monocytes % (auto) 9.9 %; Neutrophils # (auto) 5.31 K/uL (1.4-6.5); Neutrophils % (auto) 73.1 %; Nucleated RBC # (auto) 0.08 K/uL (0-0); Nucleated RBC % (auto) 1.2 %; Platelet Count 209 K/uL (130-400); RDW Coefficient of Variation 13.9 % (11.5-14.5); RDW Standard Deviation 44.9 fL (36.4-46.3); Red Blood Count 5.61 M/uL (4.7-6.1); White Blood Count 7.26 K/uL (4.8-10.8)
[2019-07-27 05:47] LABS: Albumin Level 2.5 gm/dl (3.4-5.0); BUN Creatinine Ratio 33.8 (10-20); Calcium 8.5 mg/dl (8.5-10.1); Creatinine Clr Calc Pharmacy 32.9 ml/min; Est GFR (African American) 46.9; Est GFR (Non-African American) 40.5; Potassium 3.9 mmol/L (3.5-5.1)
[2019-07-27 05:54] LABS: Albumin Globulin Ratio 0.7 (0.9-2); Bilirubin,Total 1.3 mg/dl (0.2-1); Globulin 3.6 gm/dl (2.5-4.0); Total Protein 6.1 gm/dl (6.4-8.2)
[2019-07-27] MEDS: HEPARIN SOD 5,000 UNIT/0.5 ML VIAL SQ SCH ×2 (08:47→21:36)
[2019-07-27] MEDS: DEXTROSE 5% 1,000 ML IV SCH ×2 (10:42→21:53)
[2019-07-27 16:51] LABS: Calcium 8.6 mg/dl (8.5-10.1); Creatinine Clr Calc Pharmacy 33.7 ml/min; Est GFR (African American) 48.5; Est GFR (Non-African American) 41.8; Potassium 3.7 mmol/L (3.5-5.1)
--- NOTE | 2019-07-27 17:10 | XRay Report ---
XR chest 1V portable HISTORY: fever, wet cough - ?aspiration pneumonia COMPARISON: Chest 07/26/2019. FINDINGS: Lucency within the right upper lung zone is likely due to a skinfold. The lungs are clear. The heart is normal in size. No pleural effusions. No pneumothorax. IMPRESSION: No acute process. ACT 112: Negative or not required by law. Electronically signed by: Yonatan Huitron M.D. 07/27/2019 5:08 PM
[2019-07-27 17:28] LABS: Basophils # (auto) 0.01 K/uL (0-0.2); Basophils % (auto) 0.1 %; Eosinophils # (auto) 0.02 K/uL (0-0.5); Eosinophils % (auto) 0.2 %; Hemoglobin 16.3 g/dL (14.0-18.0); Immature Granulocytes # (auto) 0.02 K/uL (0.00-0.02); Immature Granulocytes % (auto) 0.2 %; Lymphocytes # (auto) 1.01 K/uL (1.2-3.4); Lymphocytes % (auto) 11.7 %; Mean Corpuscular Hemoglobin 29.6 pg (25-34); Mean Corpuscular Volume 87.3 fL (80-100); Mean Platelet Volume 11.6 fL (7.4-10.4); Monocytes # (auto) 0.83 K/uL (0.11-0.59); Monocytes % (auto) 9.6 %; Neutrophils # (auto) 6.75 K/uL (1.4-6.5); Neutrophils % (auto) 78.2 %; Nucleated RBC # (auto) 0.02 K/uL (0-0); Nucleated RBC % (auto) 0.2 %; Platelet Count 227 K/uL (130-400); RDW Coefficient of Variation 14.1 % (11.5-14.5); RDW Standard Deviation 45.1 fL (36.4-46.3); White Blood Count 8.64 K/uL (4.8-10.8)
--- NOTE | 2019-07-27 18:51 | Hospitalist Progress Note ---
Date of Service July 27, 2019 Assessment & Plan (1) Hypernatremia: 2nd to dehydration/poor oral intake in the setting of progressive/severe Alzheimer's dementia. Free water deficit is at least ~3 liters. improving some w 1/2NSS but slowly - change to D5W similar rate and follow Once re-hydrated we will need to assess if patient is able to maintain proper nutrition/hydration. (2) Fever: uncertain source. does not have leukopenia or hypoxia - highly doubt COVID at this time ?urinary source given low UO and concentrated urine - check UA and Cx, empiric rocephin -considered pneumonia -- CXR negative pulse ox 100% -r/o bacteremia w blood cultures -no diarrhea --> no Cdiff -?atelectasis from being so lethargic (3) Encephalopathy: Altered MS in the setting of severe, progressive dementia. Likely metabolic in etiology. Hypernatremia can contribute. Uncertain if there is an underlying infectious component. see above (4) Acute dehydration: see above in "dehydration" changed to D5W (5) Acute renal failure: 2nd to dehydration. Hydrate, serial BMPs. - showing slow improvement (6) HTN (hypertension): Hold alpha nikhil for now. follow BP - reasonable (7) Abnormal LFTs: liver US w fatty liver as probable culprit (8) Diabetes: HOLD metformin. q6h BSGs. tighten sugar coverate some - add basal on top of bolus (9) Hyperlipidemia: history of such but not taking any medications. (10) Severe protein-calorie malnutrition: 20kg weight loss in 2020. 2nd to end-stage dementia. Daughter was at bedside during my assessment. After he is re-hydrated we will need to reassess patient's status. (11) Alzheimer disease: By history end-stage/severe. Hold lexapro since unable to take PO; resume if able to take PO. Hold remeron due to altered MS. Hold zyprexa for now but low threshold to reinstitute such (was placed on this while at [employer]). Haldol 2mg IM prn agitation. (12) Chronic kidney disease, stage 3a: baseline CrCl <60 serial BMPs (13) DVT prophylaxis: heparin 5000 BID daughter confirmed that pt's desire would be DNR status to admitting Admission and Anticipated Discharge Date Admission Date: July 26, 2019 Subjective no HPI or ROS from pt earlier nursing noted that he had low UO later called for new fever Review of Systems Review of Systems: Unobtainable due to cognitive status Physical Exam Physical Exam: nad nc at mmm breathing unlabored no accessory muscles good effort skin no rashes no pallor or icterus no notable focal neuro deficits at rest Results & Data Results & Data ([facility]) Vital Signs (Past 12 Hours) Vital Signs Temp Pulse Resp BP Pulse Ox 07/27/19 15:58 101.1 F H 105 H 18 115/69 100 07/27/19 07:51 98.8 F 104 H 22 135/79 99 PG Care Time/CCT Total # of Minutes Spent Total Time Spent with Patient: Total time spent is greater than 50% in coordination of care (as documented) at patient's floor/unit and/or counseling patient: Coding Level of Care Code 23579 Subseq Hosp Care Lvl 3 Diagnoses Hypernatremia E87.0 Fever R50.9 Fever type: unspecified Encephalopathy G93.40 Acute dehydration E86.0 Acute renal failure N17.9 Acute renal failure type: unspecified HTN (hypertension) I10 Hypertension type: essential hypertension Abnormal LFTs R94.5 Diabetes E11.9 Diabetes mellitus complication status: without complication Diabetes mellitus manager long term care insulin use: without group home use Diabetes mellitus type: type 2 Hyperlipidemia E78.2 Hyperlipidemia type: mixed hyperlipidemia Severe protein-calorie malnutrition E43 Alzheimer disease G30.9; F02.81 Alzheimer's disease onset: unspecified onset Dementia behavioral disturbance: with behavioral disturbance Chronic kidney disease, stage 3a N18.3 DVT prophylaxis Z29.9 (1) Diabetes Diabetes mellitus complication status: without complication Diabetes mellitus manager long term care insulin use: without manager long term care use Diabetes mellitus type: type 2 Qualified Code(s): E11.9 - Type 2 diabetes mellitus without complications (2) Acute renal failure Acute renal failure type: unspecified Qualified Code(s): N17.9 - Acute kidney failure, unspecified (3) Alzheimer disease Alzheimer's disease onset: unspecified onset Dementia behavioral disturbance: with behavioral disturbance Qualified Code(s): G30.9 - Alzheimer's disease, unspecified; F02.81 - Dementia in other diseases classified elsewhere with behavioral disturbance (4) Hyperlipidemia Hyperlipidemia type: mixed hyperlipidemia Qualified Code(s): E78.2 - Mixed hyperlipidemia (5) HTN (hypertension) Hypertension type: essential hypertension Qualified Code(s): I10 - Essential (primary) hypertension (6) Fever Fever type: unspecified Qualified Code(s): R50.9 - Fever, unspecified
[2019-07-27] MEDS ORDERED: cefTRIAXone SODIUM 1,000 MG in DEXTROSE 5% 50 ML IV SCH (19:00)
[2019-07-27 19:50] LABS: Appearance Urine Clear (Clear); Bacteria Urine Automated Negative (Negative); Blood Urine Negative (Negative); Color Urine Dark Yellow; Epithelial Cell Urine Auto 0-5 /lpf (0-5); Glucose Urine UA Negative (Negative); Ketones Urine Negative (Negative); Leukocyte Esterase Urine Trace (Negative); Nitrite Urine Positive (Negative); Protein Urine Negative (Negative); RBC Urine Automated 0-4 /hpf (0-4); Specific Gravity Urine 1.025 (1.000-1.030); Urobilinogen Urine Positive (Negative)
[2019-07-27 19:53] LABS: Bilirubin Urine Negative (Negative); Ictotest Urine Negative (Negative)
[2019-07-27] MEDS ORDERED: INSULIN GLARGINE SOLOSTAR 100 UNITS/ML 3 ML PEN SC SCH (21:00)
[2019-07-28] MEDS: INSULIN ASPART 100 UNITS/ML 3 ML PEN SC SCH ×5 (01:57→23:28)
[2019-07-28] MEDS: ACETAMINOPHEN 1,000 MG/100 ML VIAL IV PRN ×2 (02:13→16:18)
[2019-07-28] MEDS ORDERED: LACTATED RINGER'S 1,000 ML IV ONE ×2 (04:22→07:45)
[2019-07-28] MEDS ORDERED: LACTATED RINGER'S 500 ML IV ONE ×3 (04:34→07:00)
[2019-07-28 06:01] LABS: Hematocrit (blood only) 48.8 % (42-52); Hemoglobin 16.4 g/dL (14.0-18.0); Mean Corpuscular Hemoglobin 28.7 pg (25-34); Mean Corpuscular Hgb Conc 33.6 g/dL (32-36); Mean Corpuscular Volume 85.3 fL (80-100); Mean Platelet Volume 11.7 fL (7.4-10.4); Platelet Count 217 K/uL (130-400); RDW Coefficient of Variation 14.1 % (11.5-14.5); RDW Standard Deviation 43.9 fL (36.4-46.3); Red Blood Count 5.72 M/uL (4.7-6.1); White Blood Count 10.36 K/uL (4.8-10.8)
[2019-07-28 06:24] LABS: Calcium 8.4 mg/dl (8.5-10.1); Creatinine Clr Calc Pharmacy 19.4 ml/min; Est GFR (African American) 24.9; Est GFR (Non-African American) 21.5; Potassium 3.7 mmol/L (3.5-5.1)
[2019-07-28 06:27] LABS: Basophils # (auto) 0.03 K/uL (0-0.2); Basophils % (auto) 0.3 %; Dohle Bodies 1+; Giant Platelets 1+; Immature Granulocytes # (auto) 0.07 K/uL (0.00-0.02); Immature Granulocytes % (auto) 0.7 %; Lymphocytes # (auto) 0.96 K/uL (1.2-3.4); Lymphocytes % (auto) 9.3 %; Monocytes # (auto) 0.61 K/uL (0.11-0.59); Monocytes % (auto) 5.9 %; Neutrophils # (auto) 8.69 K/uL (1.4-6.5); Neutrophils % (auto) 83.8 %; Toxic Vacuolation 1+
[2019-07-28 07:27] LABS: Beta-Hydroxybutyrate 1.56 mg/dl (0.2-2.81)
[2019-07-28] MEDS ORDERED: VANCOMYCIN CONSULT ACTIVE PRN (07:33)
--- NOTE | 2019-07-28 07:48 | XRay Report ---
XR chest 1V portable CLINICAL HISTORY: 84 years-old Male presenting with tachypnea. TECHNIQUE: Portable upright AP view of the chest was obtained. COMPARISON: 07/27/2019. FINDINGS: Atherosclerosis of the aortic arch. Cardiac silhouette top normal in size. Interval development of pa tchy opacity at the left lung base. Right lung and pleural spaces clear. Prominent skin folds over th e upper lung zones. No convincing evidence of pneumothorax. Degenerative changes of the thoracic spin e. Upper abdomen normal. IMPRESSION: 1. Developing left basilar infiltrate concerning for pneumonia. Follow-up is advised. ACT 112: Negative or not required by law. Electronically signed by: Sabino Kelley M.D. 07/28/2019 7:47 AM
[2019-07-28] MEDS ORDERED: VANCOMYCIN HCL 1,500 MG in SODIUM CHLORIDE 0.9% 500 ML IV ONE (08:00)
[2019-07-28] MEDS: HEPARIN SOD 5,000 UNIT/0.5 ML VIAL SQ SCH ×2 (08:49→21:40)
--- NOTE | 2019-07-28 08:51 | Hospitalist Progress Note ---
Date of Service July 28, 2019 Assessment & Plan (1) Sepsis: developed overnight - last night nonspecific fever but otherwise not very ill appearing, clear CXR. labs sent and reassuring, started on empiric ceftriaxone -now developing LLL infiltrate, appears quite c/w pneumonia -- have to have concern for MRSA or pseudomonas given age/frailty and stays in healthcare settings - hence escalation to vanco and cefepime -extensive discussions with significant other - given his advanced dementia and recent baseline, i unfortunately suspect the best case would be to be able to have him survive this event but still be fighting failure to thrive with dementia, and more than likely should he survive he would likely be SNF level for the indefinite future with a concern of would he ever return to baseline level of functioning, and given age/dementia/frailty and severity of current sepsis there is certainly a good possibility he would not survive this event no matter what we do -significant other did not want escalation of care (even in terms of transfer to higher level within hospital) - was conflicted between current care and comfort measures only - so for now i guided her to continue abx and fluids, follow closely, not escalate beyond what we are doing, but also prioritize his comfort if he were to show any discomfort (so morphine prn pain/dyspnea added, although right now he does not look like he would need it) *of note, despite COVID showing a small increase in prevalenc*e in [place] and despite pt having been in multiple facilities, his clinical picture is much more of a sepsis/focal pneumonia (LLL rather than diffuse b/l) and his sepsis is disproportionate to his hypoxia, rather than the reverse; this appears much more c/w sepsis from severe pneumonia (concern MRSA/pseudomonas) (2) Acute renal failure: related to severe sepsis/septic shock -had started to improve w initial HILARIA on CKD from hypernatremic dehydration --> now worse related to septic shock from pneumonia (3) Hypernatremia: 2nd to dehydration/poor oral intake in the setting of progressive/severe Alzheimer's dementia. sodium has normalized to 145, but unfortunately severe sepsis/septic shock from pneumonia is most pressing problem (4) Encephalopathy: metabolic encephalopathy /delirium on dementia --> due to hypernatremic dehydration initially, now due to sepsis as above outlined (so now elements of septic encephalopathy (5) Acute dehydration: fluid management as above (6) HTN (hypertension): BP meds on hold (7) Abnormal LFTs: liver US w fatty liver as probable culprit (8) Diabetes: basal bolus insulin regimen - cautiously tighten but given significant other not wanting to escalate care, will hold on insulin gtt (9) Hyperlipidemia: history of such but not taking any medications. (10) Severe protein-calorie malnutrition: 20kg weight loss in 2020. 2nd to end-stage dementia. makes prognosis poor even before sepsis that has just ensued - appears that prior to this hospitalization he was likely failure to thrive in endstage dementia (11) Alzheimer disease: By history end-stage/severe. makes overall prognosis poor (12) Chronic kidney disease, stage 3a: baseline CrCl <60 serial BMPs (13) DVT prophylaxis: heparin 5000 BID (14) Discharge planning issues: right now as discussed with significant other, will treat pneumonia/sepsis, but will not escalate further at this time; at the same time, while not making full comfort measures yet, should he show respiratory distress/pain/etc we are to prioritize his comfort over the treatment of his pneumonia Admission and Anticipated Discharge Date Admission Date: July 26, 2019 Subjective received signout back from night coverage - pt not doing well, low BP, was assessed and bolused. fevers again, still wet cough but no evident respiratory distress. called by nursing this AMBP ~70/40 pt looking very poorly - wondered about comfort measures called significant other and explained situation - she was understandably grief stricken but as we conversed she did make it clear that he would not want heroics, and also as we discussed transfer to higher level within the hospital she would not want that. seemed conflicted on continuing abx/fluids but not escalating vs comfort measures only -- so i guided her to continue abx and fluids for now, see how he does - particularly given that he does not seem in distress now and is not a CHF patient, the odds of current care inflicting suffering are fairly low. no HPI or ROS obtainable from pt labs and diagnostics reviewed Review of Systems Review of Systems: Unobtainable due to cognitive status Physical Exam Physical Exam: nonresponsive, wet sounding respirations but no distress, maybe mild tachypnea but no appearance of true distress/dyspnea - actually looks quite comfortable and is 99-100% on RA heent nc at mm sl dry but improved from before. cardio distant, tachy. lungs diminished air entry and coarse throughout, probably slightly better air entry R sided. no pallor. no focal neuro deficits - no asymmetry noted at rest Results & Data Results & Data ([facility]) Vital Signs (Past 12 Hours) Vital Signs Temp Pulse Pulse Resp BP BP Pulse Ox 07/28/19 07:28 98.6 F 22 69/41 L 99 07/28/19 05:45 99.1 F 114 H 26 H 92/60 L 100 07/28/19 04:09 130 H 32 H 84/52 L 82/49 L 07/28/19 04:01 101.5 F H 07/28/19 00:39 102.4 F H 125 H 22 94/59 L 100 07/27/19 21:30 98.1 F PG Care Time/CCT Total # of Minutes Spent Total Time Spent with Patient: Total time spent is greater than 50% in coordination of care (as documented) at patient's floor/unit and/or counseling patient: Coding Level of Care Code 48866 Subseq Hosp Care Lvl 3 Diagnoses Sepsis A41.9 Acute renal failure N17.9 Hypernatremia E87.0 Encephalopathy G93.40 Acute dehydration E86.0 HTN (hypertension) I10 Hypertension type: essential hypertension Abnormal LFTs R94.5 Diabetes E11.9 Diabetes mellitus type: type 2 Diabetes mellitus exterminator helper insulin use: without custodial use Diabetes mellitus complication status: without complication Hyperlipidemia E78.2 Hyperlipidemia type: mixed hyperlipidemia Severe protein-calorie malnutrition E43 Alzheimer disease G30.9; F02.81 Alzheimer's disease onset: unspecified onset Dementia behavioral disturbance: with behavioral disturbance Chronic kidney disease, stage 3a N18.3 DVT prophylaxis Z29.9 Discharge planning issues Z02.9 (1) HTN (hypertension) Hypertension type: essential hypertension Qualified Code(s): I10 - Essential (primary) hypertension (2) Diabetes Diabetes mellitus type: type 2 Diabetes mellitus custodial insulin use: without exterminator helper use Diabetes mellitus complication status: without complication Qualified Code(s): E11.9 - Type 2 diabetes mellitus without complications (3) Hyperlipidemia Hyperlipidemia type: mixed hyperlipidemia Qualified Code(s): E78.2 - Mixed hyperlipidemia (4) Alzheimer disease Alzheimer's disease onset: unspecified onset Dementia behavioral disturbance: with behavioral disturbance Qualified Code(s): G30.9 - Alzheimer's disease, unspecified; F02.81 - Dementia in other diseases classified elsewhere with behavioral disturbance
[2019-07-28] MEDS ORDERED: CEFEPIME 2,000 MG in SYRINGE 7.5 ML IV ONE (09:00)
--- NOTE | 2019-07-28 12:14 | Pharmacy Report ---
Pharmacy Abx Dose Short Note - Date of Service July 28, 2019 - Assessment & Plan Assessment/Plan 84 year old M receiving Vancomycin empirically for sepsis secondary to possible pulmonary source. Patient received LD of 1500mg (23 mg/kg) IV x1. Renal function is not at baseline (SCr 2.62, baseline 1.2-1.3). Est 1/2 life at this point is >24hrs, ordered a random level with AM labs tomorrow to assist with dosing. Will follow-up with Attending tomorrow to determine if therapy should continue beyond empiric 48 hour period. Pharmacy will continue to follow and will adjust dose/frequency as necessary. Thank you.
[2019-07-28] MEDS: MoRPHine SULFATE 2 MG/ML CARP IV PRN ×2 (18:19→19:35)
[2019-07-28] MEDS: LACTATED RINGER'S 1,000 ML IV SCH (18:25)
[2019-07-28] MEDS: INSULIN GLARGINE SOLOSTAR 100 UNITS/ML 3 ML PEN SC SCH (21:41)
[2019-07-29 05:18] LABS: Hematocrit (blood only) 45.3 % (42-52); Hemoglobin 15.3 g/dL (14.0-18.0); Mean Corpuscular Hgb Conc 33.8 g/dL (32-36); Mean Platelet Volume 11.9 fL (7.4-10.4); Platelet Count 162 K/uL (130-400); RDW Coefficient of Variation 14.4 % (11.5-14.5); Red Blood Count 5.27 M/uL (4.7-6.1); White Blood Count 10.93 K/uL (4.8-10.8)
[2019-07-29 05:28] LABS: Base Excess VBG -0.4 mEq/L; HCO3 VBG 24 mmol/L; PCO2 VBG 38 mmHg (38-50); PO2 VBG 16 mmHg; pH VBG 7.42 (7.36-7.41)
[2019-07-29] MEDS: INSULIN ASPART 100 UNITS/ML 3 ML PEN SC SCH ×4 (05:28→23:54)
[2019-07-29 05:34] LABS: Oxygen Saturation VBG < 60.0 %
[2019-07-29] MEDS: LACTATED RINGER'S 1,000 ML IV SCH ×2 (05:34→18:43)
[2019-07-29 05:44] LABS: Creatinine Clr Calc Pharmacy 18.1 ml/min; Est GFR (African American) 22.9; Est GFR (Non-African American) 19.7
[2019-07-29] MEDS ORDERED: CEFEPIME 1,000 MG in SYRINGE 0 ML IV SCH (08:00)
[2019-07-29] MEDS: HEPARIN SOD 5,000 UNIT/0.5 ML VIAL SQ SCH ×2 (09:18→20:51)
[2019-07-29] MEDS: INSULIN GLARGINE SOLOSTAR 100 UNITS/ML 3 ML PEN SC SCH ×2 (09:18→20:51)
[2019-07-29] MEDS ORDERED: VANCOMYCIN HCL 1,000 MG in SODIUM CHLORIDE 0.9% 250 ML IV ONE (09:30)
--- NOTE | 2019-07-29 09:38 | Pharmacy Report ---
Pharmacy Abx Dose Short Note - Date of Service July 29, 2019 - Assessment & Plan Assessment/Plan * Mr. Estrada is still febrile, tmax yesterday of 39.3. * Random level this AM (8.9 mg/dL) does indicate that a dose is needed -- ordered 1000mg (15mg/kg) IV x1 with a random level ordered for 18 hrs after this dose. * Attempted to calculate more pt-specific ke and t1/2 using estimated peak and random level (ke=0.078, t1/2 = 8.8hr) -- these kinetics are very unlikely g iven patients impaired renal function and the fact that the patient is not at steady state. * Broadly anticipate that random level tomorrow will be somewhere between 7 and 21mg/dL, but should aid in giving a better idea of patient's actual kinetics. Pharmacy will continue to follow and will adjust dose/frequency as necessary. Thank you.
--- NOTE | 2019-07-29 15:59 | Hospitalist Progress Note ---
Date of Service July 29, 2019 Assessment & Plan (1) Sepsis: LLL severe pneumonia (under old IDSA classifications would call HCAP - now ?severe CAP w severe sepsis/septic shock?) - biggest concern would be MRSA, second gram neg such as pseudomonias -vanco, cefepime -nearly 24hrs fever free, BP stabilized, ARF more or less leveled out -after discussions with luis - will treat for at least 5 days given his progress -continue current course *of note, despite COVID showing a small increase in prevalence in [facility] and despite pt having been in multiple facilities, his clinical picture is much more of a sepsis/focal pneumonia (LLL rather than diffuse b/l) and his sepsis is disproportionate to his hypoxia, rather than the reverse; this appears much more c/w sepsis from severe pneumonia (concern MRSA/pseudomonas)*(and after another 24hrs he is behaving as a patient with pneumonia/sepsis would - defervescing, never showing serious hypoxia given prompt treatment, BP stabilized with appropriate amounts of fluids, etc) (2) Acute renal failure: related to severe sepsis/septic shock -had started to improve w initial HILARIA on CKD from hypernatremic dehydration --> then worse related to pneumonia/sepsis - now appearing to stabilize. follow (3) Hypernatremia: 2nd to dehydration/poor oral intake in the setting of progressive/severe Alzheimer's dementia. sodium has normalized, but unfortunately severe sepsis/septic shock from pneumonia is most pressing problem (4) Encephalopathy: metabolic encephalopathy /delirium on dementia --> due to hypernatremic dehydration initially, now due to sepsis as above outlined (so now elements of septic encephalopathy) (5) Acute dehydration: fluid management as above (6) HTN (hypertension): BP meds on hold (7) Abnormal LFTs: liver US w fatty liver as probable culprit (8) Diabetes: basal bolus insulin regimen - cautiously tighten a little bit more today, but given significant other not wanting to escalate care, will hold on insulin gtt (9) Hyperlipidemia: history of such but not taking any medications. (10) Severe protein-calorie malnutrition: 20kg weight loss in 2019. 2nd to end-stage dementia. makes prognosis poor even before sepsis that has just ensued - appears that prior to this hospitalization he was likely failure to thrive in endstage dementia (11) Alzheimer disease: By history end-stage/severe. makes overall prognosis poor (12) Chronic kidney disease, stage 3a: baseline CrCl <60 serial BMPs (13) DVT prophylaxis: heparin 5000 BID (14) Discharge planning issues: extensive and repeated discussions with luis a) continue current care OK since he's showing progress and not uncomfortable, but do not escalate (ie nothing that could not be done on medical floor) b) if medical issues and comfort were to come to conflict, we are to prioritize comfort c) ideally she would like to have him home w her on hospice - discussed right now that would probably be bed/tran/stool management, likely too encephalopathic for PO, etc - she is OK with this. so therefore at his current status we would treat pneumonia for ~5 days and then look at home/hospice somewhere around morning; if clinical situation changes obviously then plan may need to be revisited with backup plans of back to [facility] or other facility - but luis sounds capable and resourceful, realistic, and very much would like to have him home for his final days (but to reiterate does feel that since he's getting better with pneumonia it would not make sense to stop treatment) Admission and Anticipated Discharge Date Admission Date: July 26, 2019 Subjective no meaningful HPI. nursing notes that overall he does seem better updated partner luis - she is pleased that he's looking better; strongly wants to bring him home on hospice but would like pneumonia treated since he is showing improvement Review of Systems Review of Systems: Unobtainable due to cognitive status Physical Exam Physical Exam: no distress, laying in bed head turned slightly to the R no tachypnea no respiratory distress breathing unlabored no accessory muscles good effort skin no pallor Results & Data Results & Data ([facility]) Vital Signs (Past 12 Hours) Vital Signs Temp Pulse Pulse Resp BP BP Pulse Ox 07/29/19 15:44 97.7 F 87 18 106/66 96 07/29/19 07:06 98.1 F 103 H 20 110/67 96 PG Care Time/CCT Total # of Minutes Spent Total Time Spent with Patient: Total time spent is greater than 50% in coordination of care (as documented) at patient's floor/unit and/or counseling patient: Coding Level of Care Code 68574 Subseq Hosp Care Lvl 3 Diagnoses Sepsis A41.9 Acute renal failure N17.9 Hypernatremia E87.0 Encephalopathy G93.40 Acute dehydration E86.0 HTN (hypertension) I10 Hypertension type: essential hypertension Abnormal LFTs R94.5 Diabetes E11.9 Diabetes mellitus type: type 2 Diabetes mellitus snf insulin use: without exterminator helper use Diabetes mellitus complication status: without complication Hyperlipidemia E78.2 Hyperlipidemia type: mixed hyperlipidemia Severe protein-calorie malnutrition E43 Alzheimer disease G30.9; F02.81 Alzheimer's disease onset: unspecified onset Dementia behavioral disturbance: with behavioral disturbance Chronic kidney disease, stage 3a N18.3 DVT prophylaxis Z29.9 Discharge planning issues Z02.9 (1) HTN (hypertension) Hypertension type: essential hypertension Qualified Code(s): I10 - Essential (primary) hypertension (2) Diabetes Diabetes mellitus type: type 2 Diabetes mellitus exterminator helper insulin use: without exterminator helper use Diabetes mellitus complication status: without complication Qualified Code(s): E11.9 - Type 2 diabetes mellitus without compli cations (3) Hyperlipidemia Hyperlipidemia type: mixed hyperlipidemia Qualified Code(s): E78.2 - Mixed hyperlipidemia (4) Alzheimer disease Alzheimer's disease onset: unspecified onset Dementia behavioral disturbance: with behavioral disturbance Qualified Code(s): G30.9 - Alzheimer's disease, uns pecified; F02.81 - Dementia in other diseases classified elsewhere with behavioral disturbance
[2019-07-30 03:28] LABS: Basophils # (auto) 0.01 K/uL (0-0.2); Basophils % (auto) 0.1 %; Eosinophils # (auto) 0.09 K/uL (0-0.5); Eosinophils % (auto) 1.1 %; Hematocrit (blood only) 39.5 % (42-52); Hemoglobin 13.3 g/dL (14.0-18.0); Immature Granulocytes # (auto) 0.06 K/uL (0.00-0.02); Immature Granulocytes % (auto) 0.7 %; Lymphocytes # (auto) 0.98 K/uL (1.2-3.4); Lymphocytes % (auto) 11.5 %; Mean Corpuscular Hemoglobin 28.7 pg (25-34); Mean Corpuscular Hgb Conc 33.7 g/dL (32-36); Mean Corpuscular Volume 85.3 fL (80-100); Mean Platelet Volume 11.7 fL (7.4-10.4); Monocytes # (auto) 0.48 K/uL (0.11-0.59); Monocytes % (auto) 5.6 %; Platelet Count 134 K/uL (130-400); RDW Coefficient of Variation 14.3 % (11.5-14.5); RDW Standard Deviation 44.9 fL (36.4-46.3); Red Blood Count 4.63 M/uL (4.7-6.1); White Blood Count 8.52 K/uL (4.8-10.8)
[2019-07-30 03:56] LABS: BUN Creatinine Ratio 29.2 (10-20); Calcium 8.4 mg/dl (8.5-10.1); Creatinine Clr Calc Pharmacy 32.7 ml/min; Est GFR (African American) 46.6; Est GFR (Non-African American) 40.2; Potassium 3.3 mmol/L (3.5-5.1)
--- NOTE | 2019-07-30 04:22 | Communication Note ---
Date of Service: July 30, 2019 Got a page about 4AM for a critical sodium level of 155 for this patient. Discontinued his LR and started D5W @ 80cc/hr. Also put in for repeat BMP at 8:30AM. Resident Activity Tracking Resident Involvement: [employer] Coverage Note Care Provided: Adult Hospital Medicine
[2019-07-30] MEDS: DEXTROSE 5% 1,000 ML IV SCH ×2 (04:49→18:41)
[2019-07-30] MEDS: INSULIN ASPART 100 UNITS/ML 3 ML PEN SC SCH ×3 (06:08→18:34)
[2019-07-30] MEDS ORDERED: CEFEPIME 2,000 MG in SYRINGE 7.5 ML IV SCH (08:00)
[2019-07-30] MEDS: CEFEPIME 2,000 MG in SYRINGE 7.5 ML IV SCH ×2 (08:48→21:52)
[2019-07-30] MEDS: INSULIN GLARGINE SOLOSTAR 100 UNITS/ML 3 ML PEN SC SCH ×2 (08:53→21:55)
[2019-07-30] MEDS: HEPARIN SOD 5,000 UNIT/0.5 ML VIAL SQ SCH ×2 (08:55→21:55)
[2019-07-30 09:00] LABS: BUN Creatinine Ratio 30.4 (10-20); Calcium 8.4 mg/dl (8.5-10.1); Creatinine Clr Calc Pharmacy 37.7 ml/min; Est GFR (African American) 55.5; Est GFR (Non-African American) 47.9; Potassium 3.2 mmol/L (3.5-5.1)
[2019-07-30] MEDS ORDERED: VANCOMYCIN HCL 1,000 MG in SODIUM CHLORIDE 0.9% 250 ML IV SCH (09:00)
--- NOTE | 2019-07-30 09:36 | Pharmacy Report ---
Pharmacy Abx Dose Short Note - Date of Service July 30, 2019 - Assessment & Plan Assessment 84 year old M receiving Vancomycin + Cefepime for treatment of LLL pneumonia * Day #3 of antimicrobial therapy * Patient was afebrile over past 24 hours * Random Level this AM was subtherapeutic, given history of + MRSA nasal swab * Patient with a significant improvement in renal function: SCr 2.81 mg/dL --> 1.56 mg/dL ; eCrCl 18.1 mL/min --> 33 mL/min * Clinical picture is improving Plan Vancomycin * Random level of 11.5 mcg/mL is subtherapeutic * Will schedule Vancomycin 1000 mg IV every 24 hours * Goal trough: 15 to 20 mcg/mL * 24-hour trough level will be ordered to ensure patient is not subtherapeutic Pharmacy will continue to follow and will adjust dose/frequency as necessary. Thank you.
[2019-07-30] MEDS: POTASSIUM CHLORIDE / WTR 10 MEQ/100 ML PLCT IV SCH ×4 (10:32→13:48)
--- NOTE | 2019-07-30 22:01 | Hospitalist Progress Note ---
Date of Service July 30, 2019 Assessment & Plan (1) Sepsis: LLL severe pneumonia (under old IDSA classifications would call HCAP - now ?severe CAP w severe sepsis/septic shock?) - biggest concern would be MRSA, second gram neg such as pseudomonias -vanco, cefepime -nearly 24hrs fever free, BP stabilized, ARF more or less leveled out -after discussions with luis - will treat for at least 5 days given his progress -continue current course *of note, despite COVID showing a small increase in prevalence in [facility] and despite pt having been in multiple facilities, his clinical picture is much more of a sepsis/focal pneumonia (LLL rather than diffuse b/l) and his sepsis is disproportionate to his hypoxia, rather than the reverse; this appears much more c/w sepsis from severe pneumonia (concern MRSA/pseudomonas)*(and after another 48hrs he is behaving as a patient with pneumonia/sepsis would - defervescing, never showing serious hypoxia given prompt treatment, BP stabilized with appropriate amounts of fluids, etc) Patient does not appear to have covid. Will discharge on under home hospice. May consider getting palliative care involved and completing a POLST form. (2) Acute renal failure: related to severe sepsis/septic shock -had started to improve w initial HILARIA on CKD from hypernatremic dehydration --> then worse related to pneumonia/sepsis - now appearing to stabilize. follow (3) Hypernatremia: 2nd to dehydration/poor oral intake in the setting of progressive/severe Alzheimer's dementia. sodium has normalized, but unfortunately severe sepsis/septic shock from pneumo gibran is most pressing problem (4) Encephalopathy: metabolic encephalopathy /delirium on dementia --> due to hypernatremic dehydration initially, now due to sepsis as above outlined (so now elements of septic encephalopathy) (5) Acute dehydration: fluid management as above (6) HTN (hypertension): BP meds on hold (7) Abnormal LFTs: liver US w fatty liver as probable culprit (8) Diabetes: basal bolus insulin regimen - cautiously tighten a little bit more today, but given significant other not wanting to escalate care, will hold on insulin gtt (9) Hyperlipidemia: history of such but not taking any medications. (10) Severe protein-calorie malnutrition: 20kg weight loss in 2019. 2nd to end-stage dementia. makes prognosis poor even before sepsis that has just ensued - appears that prior to this hospitalization he was likely failure to thrive in endstage dementia (11) Alzheimer disease: By history end-stage/severe. makes overall prognosis poor (12) Chronic kidney disease, stage 3a: baseline CrCl <60 serial BMPs (13) DVT prophylaxis: heparin 5000 BID (14) Discharge planning issues: extensive and repeated discussions with luis a) continue current care OK since he's showing progress and not uncomfortable, but do not escalate (ie nothing that could not be done on medical floor) b) if medical issues and comfort were to come to conflict, we are to prioritize comfort c) ideally she would like to have him home w her on hospice - discussed right now that would probably be bed/tran/stool management, likely too encephalopathic for PO, etc - she is OK with this. so therefore at his current status we would treat pneumonia for ~5 days and then look at home/hospice somewhere around morning; if clinical situation changes obviously then plan may need to be revisited with backup plans of back to [facility] or other facility - but luis sounds capable and resourceful, realistic, and very much would like to have him home for his final days (but to reiterate does feel that since he's getting better with pneumonia it would not make sense to stop treatment) Admission and Anticipated Discharge Date Admission Date: July 26, 2019 Subjective Patient is a 84 yo male who does not provide significant history. updated partner luis - Informed her on the phone that patient did poorly on his speech eval. He failed each type of consistency. Explained that he is doing better in the short term, but this entails him being NPO which is not life sustaining. Patient will be discharged on home hospice on once treatment of HAP has been completed. Review of Systems Review of Systems: All systems reviewed & are unremarkable except as noted in HPI & below Physical Exam Physical Exam: no distress, laying in bed head turned slightly to the R, Patient appears comfortable, not exhibiting tachypnea or respiratory distress. He is not using accessory muscles, good effort; skin: no pallor Results & Data Results & [facility] ([facility]) Vital Signs (Past 12 Hours) Vital Signs Temp Pulse Resp BP Pulse Ox 07/30/19 15:11 36.3 C L 69 20 125/75 99 PG Care Time/CCT Total # of Minutes Spent Total Time Spent with Patient: Total time spent is greater than 50% in coordination of care (as documented) at patient's floor/unit and/or counseling patient: Coding Level of Care Code 87443 Subseq Hosp Care Lvl 3 Diagnoses Sepsis A41.9 Acute renal failure N17.9 Hypernatremia E87.0 Encephalopathy G93.40 Acute dehydration E86.0 HTN (hypertension) I10 Hypertension type: essential hypertension Abnormal LFTs R94.5 Diabetes E11.9 Diabetes mellitus complication status: without complication Diabetes mellitus retirement insulin use: without intermediate card tender use Diabetes mellitus type: type 2 Hyperlipidemia E78.2 Hyperlipidemia type: mixed hyperlipidemia Severe protein-calorie malnutrition E43 Alzheimer disease G30.9; F02.81 Alzheimer's disease onset: unspecified onset Dementia behavioral disturbance: with behavioral disturbance Chronic kidney disease, stage 3a N18.3 DVT prophylaxis Z29.9 Discharge planning issues Z02.9 Time Spent (min) 35 Comment chart review and conversation with partner (1) Diabetes Diabetes mellitus complication status: without complication Diabetes mellitus intermediate card tender insulin use: without retirement use Diabetes mellitus type: type 2 Qualified Code(s): E11.9 - Type 2 diabetes mellitus without complications (2) Alzheimer disease Alzheimer's disease onset: unspecified onset Dementia behavioral disturbance: with behavioral disturbance Qualified Code(s): G30.9 - Alzheimer's disease, unspecified; F02.81 - Dementia in other diseases classified elsewhere with behavioral disturbance (3) Hyperlipidemia Hyperlipidemia type: mixed hyperlipidemia Qualified Code(s): E78.2 - Mixed hyperlipidemia (4) HTN (hypertension) Hypertension type: essential hypertension Qualified Code(s): I10 - Essential (primary) hypertension
[2019-07-31] MEDS: INSULIN ASPART 100 UNITS/ML 3 ML PEN SC SCH ×4 (00:24→18:21)
[2019-07-31] MEDS: DEXTROSE 5% 1,000 ML IV SCH ×2 (06:06→18:20)
[2019-07-31] MEDS: CEFEPIME 2,000 MG in SYRINGE 7.5 ML IV SCH ×2 (07:35→20:33)
[2019-07-31] MEDS: HEPARIN SOD 5,000 UNIT/0.5 ML VIAL SQ SCH ×2 (08:22→20:33)
[2019-07-31] MEDS: INSULIN GLARGINE SOLOSTAR 100 UNITS/ML 3 ML PEN SC SCH ×2 (08:24→20:34)
[2019-07-31] MEDS ORDERED: VANCOMYCIN TROUGH SCH (08:30)
[2019-07-31 09:12] LABS: Creatinine Clr Calc Pharmacy 48.1 ml/min; Est GFR (African American) 74.3; Est GFR (Non-African American) 64.1
--- NOTE | 2019-07-31 09:29 | Pharmacy Report ---
Pharmacy Abx Dose Short Note - Date of Service July 31, 2019 - Assessment & Plan Assessment 84 year old M receiving vancomycin/cefepime for treatment of pneumonia Day # 4/5 of antimicrobial therapy. Plan Vancomycin * Trough level of 9.3 mcg/mL is subtherapeutic * Change to 750 mg IV every 12 hours (correlates with vancomycin AUC dosing) * Goal trough level for pulmonary infection : 15 to 20 mcg/mL * Trough not ordered currently as antibiotics should be discontinued soon. Pharmacy will continue to follow and will adjust dose/frequency as necessary. Thank you.
[2019-07-31] MEDS ORDERED: VANCOMYCIN HCL 750 MG in SODIUM CHLORIDE 0.9% 250 ML IV SCH (10:00)
[2019-07-31 19:54] LABS: BUN Creatinine Ratio 22.9 (10-20); Calcium 7.9 mg/dl (8.5-10.1); Creatinine Clr Calc Pharmacy 49.9 ml/min; Est GFR (African American) 77.9; Est GFR (Non-African American) 67.2; Potassium 3.2 mmol/L (3.5-5.1)
--- NOTE | 2019-07-31 22:11 | Hospitalist Progress Note ---
Date of Service July 31, 2019 Assessment & Plan (1) Sepsis: LLL severe pneumonia (under old IDSA classifications would call HCAP - now ?severe CAP w severe sepsis/septic shock?) - biggest concern would be MRSA, second gram neg such as pseudomonias -vanco, cefepime -nearly 24hrs fever free, BP stabilized, ARF more or less leveled out -after discussions with sara - will treat for at least 5 days given his progress -continue current course: plan is to discharge on . *of note, despite COVID showing a small increase in prevalence in [facility] and despite pt having been in multiple facilities, his clinical picture is much more of a sepsis/focal pneumonia (LLL rather than diffuse b/l) and his sepsis is disproportionate to his hypoxia, rather than the reverse; this appears much more c/w sepsis from severe pneumonia (concern MRSA/pseudomonas)*(and after another 48hrs he is behaving as a patient with pneumonia/sepsis would - defervescing, never showing serious hypoxia given prompt treatment, BP stabilized with appropriate amounts of fluids, etc) Patient does not appear to have covid. Will discharge on under home hospice. is agreeable to discharge and to keep him NPO for now. (2) Acute renal failure: related to severe sepsis/septic shock -had started to improve w initial HILARIA on CKD from hypernatremic dehydration --> then worse related to pneumonia/sepsis - now appearing to stabilize. follow (3) Hypernatremia: 2nd to dehydration/poor oral intake in the setting of progressive/severe Alzheimer's dementia. sodium has normalized, but unfortunately severe sepsis/septic shock from pneumonia is most pressing problem (4) Encephalopathy: metabolic encephalopathy /delirium on dementia --> due to hypernatremic dehydration initially, now due to sepsis as above outlined (so now elements of septic encephalopathy) (5) Acute dehydration: fluid management as above (6) HTN (hypertension): BP meds on hold (7) Abnormal LFTs: liver US w fatty liver as probable culprit (8) Diabetes: basal bolus insulin regimen - cautiously tighten a little bit more today, but given significant other not wanting to escalate care, will hold on insulin gtt (9) Hyperlipidemia: history of such but not taking any medications. (10) Severe protein-calorie malnutrition: 20kg weight loss in 2019. 2nd to end-stage dementia. makes prognosis poor even before sepsis that has just ensued - appears that prior to this hospitalization he was likely failure to thrive in endstage dementia (11) Alzheimer disease: By history end-stage/severe. makes overall prognosis poor (12) Chronic kidney disease, stage 3a: baseline CrCl <60 serial BMPs (13) DVT prophylaxis: heparin 5000 BID (14) Discharge planning issues: extensive and repeated discussions with sara a) continue current care OK since he's showing progress and not uncomfortable, but do not escalate (ie nothing that could not be done on medical floor) b) if medical issues and comfort were to come to conflict, we are to prioritize comfort c) ideally she would like to have him home w her on hospice - discussed right now that would probably be bed/tran/stool management, likely too encephalopathic for PO, etc - she is OK with this. so therefore at his current status we would treat pneumonia for ~5 days and then look at home/hospice somewhere around morning; if clinical situation changes obviously then plan may need to be revisited with backup plans of back to [facility] or other facility - but sara sounds capable and resourceful, realistic, and very much would like to have him home for his final days (but to reiterate does feel that since he's getting better with pneumonia it would not make sense to stop treatment) Admission and Anticipated Discharge Date Admission Date: July 26, 2019 Subjective 84 yo male reports no new symptoms today. Updated Sara on the phone. Review of Systems Review of Systems: All systems reviewed & are unremarkable except as noted in HPI & below Physical Exam Physical Exam: No distress, laying in bed head turned slightly to the R, Patient appears comfortable, not exhibiting tachypnea or respiratory distress. He is not using accessory muscles, good effort; skin: no pallor Results & Data Results & Data ([facility]) Vital Signs (Past 12 Hours) Vital Signs Temp Pulse Resp BP Pulse Ox 07/31/19 16:49 36.7 C 62 20 140/72 100 PG Care Time/CCT Total # of Minutes Spent Total Time Spent with Patient: Total time spent is greater than 50% in coordination of care (as documented) at patient's floor/unit and/or counseling patient: Coding Level of Care Code 14025 Subseq Hosp Care Lvl 2 Diagnoses Sepsis A41.9 Acute renal failure N17.9 Hypernatremia E87.0 Encephalopathy G93.40 Acute dehydration E86.0 HTN (hypertension) I10 Hypertension type: essential hypertension Abnormal LFTs R94.5 Diabetes E11.9 Diabetes mellitus complication status: without complication Diabetes mellitus exterminator insulin use: without shelter use Diabetes mellitus type: type 2 Hyperlipidemia E78.2 Hyperlipidemia type: mixed hyperlipidemia Severe protein-calorie malnutrition E43 Alzheimer disease G30.9; F02.81 Alzheimer's disease onset: unspecified onset Dementia behavioral disturbance: with behavioral disturbance Chronic kidney disease, stage 3a N18.3 DVT prophylaxis Z29.9 Discharge planning issues Z02.9 Time Spent (min) 25 (1) Diabetes Diabetes mellitus complication status: without complication Diabetes mellitus shelter insulin use: without shelter use Diabetes mellitus type: type 2 Qualified Code(s): E11.9 - Type 2 diabetes mellitus without complications (2) Alzheimer disease Alzheimer's disease onset: unspecified onset Dementia behavioral disturbance: with behavioral disturbance Qualified Code(s): G30.9 - Alzheimer's disease, unspecified; F02.81 - Dementia in other diseases classified elsewhere with behavioral disturbance (3) Hyperlipidemia Hyperlipidemia type: mixed hyperlipidemia Qualified Code(s): E78.2 - Mixed hyperlipidemia (4) HTN (hypertension) Hypertension type: essential hypertension Qualified Code(s): I10 - Essential (primary) hypertension
[2019-07-31] MEDS: D5W AND 1/4NSS + 20MEQ KCL 20 MEQ/1,000 ML BAG IV SCH (23:13)
[2019-08-01] MEDS: INSULIN ASPART 100 UNITS/ML 3 ML PEN SC SCH ×4 (00:32→18:21)
[2019-08-01 05:55] LABS: Hematocrit (blood only) 36.5 % (42-52); Hemoglobin 12.3 g/dL (14.0-18.0); Mean Corpuscular Hemoglobin 28.3 pg (25-34); Mean Corpuscular Hgb Conc 33.7 g/dL (32-36); Mean Corpuscular Volume 84.1 fL (80-100); Mean Platelet Volume 11.7 fL (7.4-10.4); Platelet Count 131 K/uL (130-400); RDW Coefficient of Variation 14.1 % (11.5-14.5); RDW Standard Deviation 43.5 fL (36.4-46.3); Red Blood Count 4.34 M/uL (4.7-6.1)
[2019-08-01 06:33] LABS: Creatinine Clr Calc Pharmacy 54.2 ml/min; Est GFR (African American) 85.9; Est GFR (Non-African American) 74.2
[2019-08-01] MEDS: HEPARIN SOD 5,000 UNIT/0.5 ML VIAL SQ SCH ×2 (08:38→20:17)
[2019-08-01] MEDS: INSULIN GLARGINE SOLOSTAR 100 UNITS/ML 3 ML PEN SC SCH ×2 (08:38→20:17)
[2019-08-01] MEDS: CEFEPIME 2,000 MG in SYRINGE 7.5 ML IV SCH ×2 (09:16→20:11)
[2019-08-01] MEDS: D5W AND 1/4NSS + 20MEQ KCL 20 MEQ/1,000 ML BAG IV SCH ×2 (09:23→20:13)
--- NOTE | 2019-08-01 21:47 | Hospitalist Progress Note ---
Date of Service August 01, 2019 Assessment & Plan (1) Sepsis: LLL severe pneumonia (under old IDSA classifications would call HCAP - now ?severe CAP w severe sepsis/septic shock?) - biggest concern would be MRSA, second gram neg such as pseudomonias -vanco, cefepime -nearly 24hrs fever free, BP stabilized, ARF more or less leveled out -after discussions with luis - will treat for at least 5 days given his progress -continue current course: plan is to discharge on . *of note, despite COVID showing a small increase in prevalence in [facility] and despite pt having been in multiple facilities, his clinical picture is much more of a sepsis/focal pneumonia (LLL rather than diffuse b/l) and his sepsis is disproportionate to his hypoxia, rather than the reverse; this appears much more c/w sepsis from severe pneumonia (concern MRSA/pseudomonas)*(and after another 48hrs he is behaving as a patient with pneumonia/sepsis would - defervescing, never showing serious hypoxia given prompt treatment, BP stabilized with appropriate amounts of fluids, etc) Patient does not appear to have covid. Will discharge on under home hospice. is agreeable to discharge and to keep him NPO for now. Discharge plan for tomorrow. (2) Acute renal failure: related to severe sepsis/septic shock -had started to improve w initial HILARIA on CKD from hypernatremic dehydration --> then worse related to pneumonia/sepsis - now appearing to stabilize. follow (3) Hypernatremia: 2nd to dehydration/poor oral intake in the setting of progressive/severe Alzheimer's dementia. on d5//4 ns with potassium given that patient is also hypokalemic (4) Encephalopathy: metabolic encephalopathy /delirium on dementia --> due to hypernatremic dehydration initially, now due to sepsis as above outlined (so now elements of septic encephalopathy) (5) Acute dehydration: fluid management as above (6) HTN (hypertension): BP meds on hold (7) Abnormal LFTs: liver US w fatty liver as probable culprit (8) Diabetes: basal bolus insulin regimen - cautiously tighten a little bit more today, but given significant other not wanting to escalate care, will hold on insulin gtt (9) Hyperlipidemia: history of such but not taking any medications. (10) Severe protein-calorie malnutrition: 20kg weight loss in 2019. 2nd to end-stage dementia. makes prognosis poor even before sepsis that has just ensued - appears that prior to this hospitalization he was likely failure to thrive in endstage dementia (11) Alzheimer disease: By history end-stage/severe. makes overall prognosis poor (12) Chronic kidney disease, stage 3a: baseline CrCl <60 serial BMPs (13) DVT prophylaxis: heparin 5000 BID (14) Discharge planning issues: extensive and repeated discussions with luis a) continue current care OK since he's showing progress and not uncomfortable, but do not escalate (ie nothing that could not be done on medical floor) b) if medical issues and comfort were to come to conflict, we are to prioritize comfort c) ideally she would like to have him home w her on hospice - discussed right now that would probably be bed/tran/stool management, likely too encephalopathic for PO, etc - she is OK with this. so therefore at his current status we would treat pneumonia for ~5 days and then look at home/hospice somewhere around morning; if clinical situation changes obviously then plan may need to be revisited with backup plans of back to [facility] or other facility - but luis sounds capable and resourceful, realistic, and very much would like to have him home for his final days (but to reiterate does feel that since he's getting better with pneumonia it would not make sense to stop treatment) Admission and Anticipated Discharge Date Admission Date: July 26, 2019 Subjective Patient provides no new symptoms. Review of Systems Review of Systems: Unobtainable due to cognitive status Physical Exam Physical Exam: No distress, laying in bed. Patient appears comfortable, not exhibiting tachypnea or respiratory distress. He is not using accessory muscles, good effort; skin: no pallor Cardio: RRR, NLS1 and S2 Results & Data Results & Data ([facility]) Vital Signs (Past 12 Hours) Vital Signs Temp Pulse Resp BP Pulse Ox 08/01/19 15:06 36.6 C 65 12 152/64 H 100 PG Care Time/CCT Total # of Minutes Spent Total Time Spent with Patient: Total time spent is greater than 50% in coordination of care (as documented) at patient's floor/unit and/or counseling patient: Coding Level of Care Code 54240 Subseq Hosp Care Lvl 1 Diagnoses Sepsis A41.9 Acute renal failure N17.9 Hypernatremia E87.0 Encephalopathy G93.40 Acute dehydration E86.0 HTN (hypertension) I10 Hypertension type: essential hypertension Abnormal LFTs R94.5 Diabetes E11.9 Diabetes mellitus complication status: without complication Diabetes mellitus termite helper insulin use: without termite helper use Diabetes mellitus type: type 2 Hyperlipidemia E78.2 Hyperlipidemia type: mixed hyperlipidemia Severe protein-calorie malnutrition E43 Alzheimer disease G30.9; F02.81 Alzheimer's disease onset: unspecified onset Dementia behavioral disturbance: with behavioral disturbance Chronic kidney disease, stage 3a N18.3 DVT prophylaxis Z29.9 Discharge planning issues Z02.9 (1) Diabetes Diabetes mellitus complication status: without complication Diabetes mellitus chcf insulin use: without chcf use Diabetes mellitus type: type 2 Qualified Code(s): E11.9 - Type 2 diabetes mellitus without complications (2) Alzheimer disease Alzheimer's disease onset: unspecified onset Dementia behavioral disturbance: with behavioral disturbance Qualified Code(s): G30.9 - Alzheimer's disease, unspecified; F02.81 - Dementia in other diseases classified elsewhere with behavioral disturbance (3) Hyperlipidemia Hyperlipidemia type: mixed hyperlipidemia Qualified Code(s): E78.2 - Mixed hyperlipidemia (4) HTN (hypertension) Hypertension type: essential hypertension Qualified Code(s): I10 - Essential (primary) hypertension
[2019-08-02] MEDS: INSULIN ASPART 100 UNITS/ML 3 ML PEN SC SCH ×3 (00:04→12:22)
[2019-08-02 07:26] LABS: BUN Creatinine Ratio 13.8 (10-20); Calcium 7.9 mg/dl (8.5-10.1); Creatinine Clr Calc Pharmacy 57.2 ml/min; Est GFR (Non-African American) 78.5; Potassium 3.3 mmol/L (3.5-5.1)
[2019-08-02] MEDS: POTASSIUM CHLORIDE / WTR 10 MEQ/100 ML PLCT IV SCH ×3 (08:23→10:32)
[2019-08-02] MEDS: CEFEPIME 2,000 MG in SYRINGE 7.5 ML IV SCH (08:25)
[2019-08-02] MEDS: INSULIN GLARGINE SOLOSTAR 100 UNITS/ML 3 ML PEN SC SCH (08:30)
[2019-08-02] MEDS: HEPARIN SOD 5,000 UNIT/0.5 ML VIAL SQ SCH (08:31)
[2019-08-02] MEDS: D5W AND 1/4NSS + 20MEQ KCL 20 MEQ/1,000 ML BAG IV SCH (08:35)
--- NOTE | 2019-08-09 00:27 | Discharge Summary ---
Date of Service August 02, 2019 Admission HPI Per Admitting Provider 84yo male with advanced Alzheimer's dementia and T2DM who presents from [facility] due to worsening lethargy, decreased PO intake, and failure to thrive. Step-daughter is at bedside during my admission assessment. Patient is unable to provide any information and thus all information was obtained from the ED provider and step-daughter. Apparently patient has been living at [facility] for about 2 months. In early June he had escalating agitation and was admitted to "[facility]" kwaku-psych unit at [facility] to treat his dementia with behavioral disturbance. He spent 3 weeks there for medication adjustment. At discharge he was released back to [facility] (about 10 days ago). Daughter states he was able to ambulate upon admission to [facility] but is now wheelchair-dependent. Since re-admission back to [facility] 10 days ago the report given to family has been of progressive decline - poor intake of liquids/solids, fatigue/lethargy, ongoing weight loss, etc. Thus, he was transferred to our hospital for evaluation. Principal Diagnosis sepsis Discharge Exam No distress, laying in bed. Patient appears comfortable, not exhibiting tachypnea or respiratory distress. He is not using accessory muscles, good effort; skin: no pallor Cardio: RRR, NLS1 and S2 Discharge Data Allergies Allergy/AdvReac Type Severity Reaction Status Date / Time No Known Allergies Allergy Verified 07/26/19 08:28 Consultations 07/28/19 18:26 Consult Case Management - Discharge Planning Routine Ordered Studies 07/26/19 11:10 US gallbladder Stat Hospital Course (1) Sepsis: LLL severe pneumonia (under old IDSA classifications would call HCAP - now ?severe CAP w severe sepsis/septic shock?) - biggest concern would be MRSA, second gram neg such as pseudomonias -vanco, cefepime -nearly 24hrs fever free, BP stabilized, ARF more or less leveled out -after discussions with luis - will treat for at least 5 days given his progress -continue current course: plan is to discharge on . *of note, despite COVID showing a small increase in prevalence in [facility] and despite pt having been in multiple facilities, his clinical picture is much more of a sepsis/focal pneumonia (LLL rather than diffuse b/l) and his sepsis is disproportionate to his hypoxia, rather than the reverse; this appears much more c/w sepsis from severe pneumonia (concern MRSA/pseudomonas)*(and after another 48hrs he is behaving as a patient with pneumonia/sepsis would - defervescing, never showing serious hypoxia given prompt treatment, BP stabilized with appropriate amounts of fluids, etc) Patient does not appear to have covid. Will discharge on under home hospice. is agreeable to discharge and to keep him NPO for now. Discharge plan for today. (2) Acute renal failure: related to severe sepsis/septic shock -had started to improve w initial HILARIA on CKD from hypernatremic dehydration --> then worse related to pneumonia/sepsis - now appearing to stabilize. follow (3) Hypernatremia: 2nd to dehydration/poor oral intake in the setting of progressive/severe Alzheimer's dementia. on d5/4 ns with potassium given that patient is also hypokalemic (4) Encephalopathy: metabolic encephalopathy /delirium on dementia --> due to hypernatremic dehydration initially, now due to sepsis as above outlined (so now elements of septic encephalopathy) (5) Acute dehydration: fluid management as above (6) HTN (hypertension): BP meds on hold/ resume at discharge as per hospice team. (7) Abnormal LFTs: liver US w fatty liver as probable culprit (8) Diabetes: basal bolus insulin regimen - (9) Hyperlipidemia: history of such but not taking any medications. (10) Severe protein-calorie malnutrition: 20kg weight loss in 2019. 2nd to end-stage dementia. makes prognosis poor even before sepsis that has just ensued - appears that prior to this hospitalization he was likely failure to thrive in endstage dementia (11) Alzheimer disease: By history end-stage/severe. makes overall prognosis poor (12) Chronic kidney disease, stage 3a: baseline CrCl <60 serial BMPs (13) DVT prophylaxis: heparin 5000 BID (14) Discharge planning issues: extensive and repeated discussions with luis Patient to be discharge to home hospice Total Time Total Time Spent Total Time Spent (In Minutes): 32 Total Time Includes: Examination of the Patient, Discharge Planning and Medication Reconciliation Discharge Plan Discharge Items Patient Disposition: Hospice - Home Reason For Visit: HYPERNATREMIC DEHYDRATION, ALTERED MENTAL STATUS Discharge Diagnosis: Pneumonia Activity: As commented below Activity Comment: discharged on hospice. Non-emergency contact: Primary Care Provider Call non-emergency contact if: you have any medication questions Follow-up/Referrals: STATE SERENA PERES [Primary Care Provider] - Diet: Regular Addtl Attending Provider Instructions: Coronavirus disease 2019 (COVID-19) is a virus that causes a respiratory illness. It is caused by a coronavirus called 2019 novel coronavirus (2019- nCoV). There are many types of coronavirus. Coronaviruses are a very common c ause of bronchitis. They may sometimes cause lung infection(pneumonia). Symptoms can range from mild to severe respiratory illness. These viruses are also foundin some animals. COVID-19 was first found in people in [facility], in late 2019. In 2020, several cases of COVID-19 have been confirmed in the [place] Public health officials are working to find the source. How the virus spreads is not yet fully known. It may be spread through droplets of fluid that a person coughs or sneezes into the air. It may be spread if you touch a surface with virus on it, such as a handle or object, and then touch your mouth. What are the symptoms of COVID-19? Some people have no symptoms or mild symptoms. Symptoms may appear 2 to 14 days after contact with the virus. Symptoms can include: Fever Coughing Trouble breathing What are possible complications from COVID-19? In many cases, this virus can cause infection (pneumonia) in both lungs. In some cases, this can cause . How is COVID-19 diagnosed? Your healthcare provider will ask about your symptoms. He or she will also ask about your recent travel and contact with sick people. Testing for the virus is only done through the CDC. If yourhealthcare provider thinks you may have COVID- 19, he or she will work with your local health department and the CDC on testing. Follow all instructions from your healthcare provider. COVID-19 is diagnosed by: Nasal and throat swab. A cotton-tipped swab is wiped inside your nose or throat. This is done to check for viruses in your nasal mucus. Sputum culture. A small sample of mucus coughed from your lungs (sputum) is collected if you have a cough. It is checked for the virus. How is COVID-19 treated? There is currently no medicine to treat the virus. Treatment is done to help your body while it fights the virus. This is known as supportive care. Supportive care may include: Pain medicine. These include acetaminophen and ibuprofen. They are used to help ease pain and reduce fever. Bed rest. This helps your body fight the illness. For severe illness, you may need to stay in the hospital. Care during severe illness may include: IV (intravenous) fluids.These are given through a vein to help keep your body hydrated. Oxygen. Supplemental oxygen or ventilation with a breathing machine (ventilator) may be given. This is done to keep enough oxygen in your body. Are you at risk for COVID-19? If youve been to a place where people have been sick with this virus, you are at risk for infection. You are at risk if you: Recently traveled to an affected area Had contact with a sick person who recently traveled to this area Had contact with a person who was diagnosed with COVID-19 How can COVID-19 be prevented? There is no vaccine yet. The best prevention is to not have contact with the virus. The CDC advises that people should not travel to areas where there are COVID-19 outbreaks right now for any reason that is not urgent. To help prevent spreading the infection, wash your hands often, or use an alcohol-basedhand physical therapy technician. If you are in an area with COVID-19: Wash your hands often. Or use an alcohol-based hand physical therapy technician often. Only touch your eyes, nose, or mouth with clean hands. Dont have contact with people who are sick. Follow local instructions about being in public. For example, you may be told to not use public transport for a period of time. Stay away from markets that have live or animals. Wash your hands after touching any animals. Don't touch animals that may be sick. Dont share eating or drinking tools with sick people. Dont kiss someone who is sick. Clean surfaces often with disinfectant. If you were in an area with COVID-19 in the last 14 days: Call your healthcare provider. He or she can talk with local health staff to see what action may be needed. Follow all instructions from your provider. Take your temperature every morning and evening for at least 14 days. This is to check for fever. Keep a record of the readings. Keep watch for symptoms of the virus. Tell your provider right away if you have symptoms. If you were in an area with COVID-19 and have a fever or other symptoms: Dont panic. Keep in mind that other illnesses can cause similar symptoms. Stay away from work, school, and public places. Limit physical contact with family members. Don't kiss anyone or share eating or drinking utensils. Clean surfaces you touch with disinfectant. This is to help prevent the virus from spreading. Call your healthcare provider. Explain that you have been exposed to COVID-19 and have symptoms. Do this before going to any hospital. Wait for instructions. Keep in mind that healthcare staff may wear protective equipment such as masks, gowns, gloves, and eye protection. You may be put in a separate room. This is to prevent the possible virus from spreading. Tell the healthcare staff about recent travel. This includes local travel on public transport. Staff may need to find other people you have been in contact with. Follow all instructions the healthcare staff give you. If you have been diagnosed with COVID-19 Follow all instructions from your healthcare provider. Dont leave your home, except to get medical care. Call your healthcare providers office before going. They can prepare and give you instructions. This will help prevent the virus from spreading. Dont go to work, school, or public areas. Dont use public transport or taxis. Stay away from other people in your home. Have them wear face masks around you. Dont share household items or food. Wear a face mask if you can. This includes at home or in a medical facility. Cover your face with a tissue when you cough or sneeze. Throw the tissue away. Wash your hands. Wash your hands often. Caregivers should: Follow all instructions from healthcare staff. Wear a face mask and protective clothing as advised. Wash hands often. Keep track of the sick persons symptoms. Clean surfaces, fabrics, and laundry thoroughly. Keep other people away from the sick person. When to call your healthcare provider Call your healthcare provider: If youve recently traveled and have symptoms If you have been diagnosed with COVID-19 and your symptoms are worse To learn more To find out more about COVID-19, visit the CDC website at www.cdc.gov/coronavirus/2019-ncov/index.html. 6848-[address] [employer] [place] [address], [place] [address]. All rights reserved. This information is not intended as a substitute for professional medical care. Always follow your healthcare professional's instructions. This information has been adapted from [employer] Pending Studies at Discharge: No Stand-Alone Forms: My [facility] Medications and DC Order Prescriptions: Continued escitalopram oxalate 10 mg tablet 10 mg PO QAM RF: 0 tamsulosin 0.4 mg capsule 0.4 mg PO QAM RF: 0 metformin 500 mg tablet 500 mg PO QAM RF: 0 olanzapine 5 mg tablet 5 mg PO DAILY RF: 0 olanzapine 2.5 mg tablet 2.5 mg PO DAILY RF: 0 mirtazapine 7.5 mg tablet 7.5 mg PO DAILY RF: 0 Discontinued lorazepam 0.5 mg tablet 0.5 mg PO DAILY PRN (Reason: Anxiety) RF: 0 aspirin [Aspir-81] 81 mg Tablet,Delayed Release (Dr/Ec) 81 mg PO HS RF: 0 Discharge Orders: Discharge Order (Routine); Ordered 08/02/19 Ordered By: Armen Vallejo/Other Patient Handouts: Hospice Admission Data Admit Date/Time: 07/26/19 11:10 Attending Provider: Armen Blake Admit Provider: Riaz Cárdenas Primary Care Provider: STATE SERENA PERES Other Interventions: Discharge Summary Assessment (RN) Last Done: 08/02/19 11:21 DC Date/Time DO NOT enter until pt leaves facility: 08/02/19 13:07 Coding Level of Care Code D/C Day Management >30 mins Diagnoses Sepsis A41.9 Acute renal failure N17.9 Hypernatremia E87.0 Encephalopathy G93.40 Acute dehydration E86.0 HTN (hypertension) I10 Hypertension type: essential hypertension Abnormal LFTs R94.5 Diabetes E11.9 Diabetes mellitus complication status: without complication Diabetes mellitus correction insulin use: without correction use Diabetes mellitus type: type 2 Hyperlipidemia E78.2 Hyperlipidemia type: mixed hyperlipidemia Severe protein-calorie malnutrition E43 Alzheimer disease G30.9; F02.81 Alzheimer's disease onset: unspecified onset Dementia behavioral disturbance: with behavioral disturbance Chronic kidney disease, stage 3a N18.3 DVT prophylaxis Z29.9 Discharge planning issues Z02.9
== END 2019-08-02 13:07 | disposition hospice, home (50) | DRG 640 ==
LOC: ED 07:36 → SUATTDRO 11:10 → 3E 11:10
DX: G30.9 Alzheimer's disease, unspecified; A41.9 Sepsis, unspecified organism; Z66 Do not resuscitate; R65.21 Severe sepsis with septic shock; F02.80 Dementia in other diseases classified elsewhere, unspecified severity, without behavioral disturbance, psychotic disturbance, mood disturbance, and anxiety; E87.0 Hyperosmolality and hypernatremia; Z79.899 Other long term (current) drug therapy; Z79.84 Long term (current) use of oral hypoglycemic drugs; Z51.5 Encounter for palliative care; Z68.22 Body mass index [BMI] 22.0-22.9, adult; N18.3 Chronic kidney disease, stage 3 (moderate); E43 Unspecified severe protein-calorie malnutrition; R79.89 Other specified abnormal findings of blood chemistry; G93.41 Metabolic encephalopathy; Z87.891 Personal history of nicotine dependence; I12.9 Hypertensive chronic kidney disease with stage 1 through stage 4 chronic kidney disease, or unspecified chronic kidney disease; Z79.82 Long term (current) use of aspirin; Z86.39 Personal history of other endocrine, nutritional and metabolic disease; E11.22 Type 2 diabetes mellitus with diabetic chronic kidney disease; Y95 Nosocomial condition; J18.1 Lobar pneumonia, unspecified organism; R62.7 Adult failure to thrive; E86.0 Dehydration; N17.8 Other acute kidney failure